=== PATIENT | female | born 1955 | race Caucasian/White ===

== ENCOUNTER 2018-04-26 10:50 | Emergency (ER) | payer OTHER ==
[~2018-04-26] VITALS: Ht 170.2 cm; Wt 62.6 kg
[~2018-04-26 10:50] MED LIST: CIPRO500 MG PO; CLARITIN10 MG PO; FLAGYL500 MG PO; HYDROCODONE-APA1 TA1 PO; OMEPRAZOLE 20 M20 M1 PO
[2018-04-26] MEDS ORDERED: CHILDREN'S ASPI81 M1 PO (11:06)
[2018-04-26] MEDS ORDERED: PREVACID15 MG PO (11:07)
[2018-04-26 11:21] LABS: URINE BLOOD NEGATIVE (Negative); URINE CLARITY CLEAR; URINE COLOR YELLOW; URINE GLUCOSE-RANDOM NEGATIVE (Negative); URINE KETONES NEGATIVE (Negative); URINE LEUKOCYTES-REFLEX 1+ (Negative); URINE NITRITE-REFLEX NEGATIVE (Negative); URINE PROTEIN TRACE (Negative); URINE SPECIFIC GRAVITY 1.015 (1.005-1.030)
[2018-04-26 11:25] LABS: ICTOTEST (BILI CONFIRMATORY) Negative (Negative); URINE BILIRUBIN 1+ (Negative)
[2018-04-26 11:28] LABS: ABSOLUTE BASOPHILS 0.1 thou/uL (0.0-0.2); ABSOLUTE EOSINOPHILS 0.2 thou/uL (0.0-0.7); ABSOLUTE LYMPHOCYTES 1.6 thou/uL (0.8-5.3); ABSOLUTE MONOCYTES 0.9 thou/uL (0.0-1.2); ABSOLUTE NEUTROPHILS 9.2 thou/uL (1.6-8.1); BASOPHILS 1.2 %; EOSINOPHILS 1.8 %; HEMATOCRIT 31.7 % (37.0-47.0); HEMOGLOBIN 9.7 gm/dL (12.0-15.0); LYMPHOCYTES 13.2 %; MCH 22.5 pg (26.0-34.0); MCHC 30.7 g/dL (28.0-37.0); MCV 73.2 fL (80.0-100.0); MONOCYTES 7.3 %; MPV 8.3 fl. (7.2-11.1); NUCLEATED RBCS 0 /100WBC; PLATELET COUNT* 439 thou/uL (150-400); POLYS 76.5 %; RBC 4.33 mil/uL (4.20-5.00); RDW-CV 15.1 % (10.5-14.5); WBC 12.1 thou/uL (4.0-11.0)
[2018-04-26 11:34] LABS: SQUAMOUS >10 Many /LPF (0-3)
[2018-04-26 11:35] LABS: BACTERIA-REFLEX 1-9 Few /HPF (None Seen); CASTS None Seen /LPF (None Seen); CRYSTALS None Seen /LPF (None Seen); MUCUS None Seen strn/LPF (None Seen); URINE RBC 3-10 Few /HPF (0-2); URINE WBC-REFLEX 6-15 Few /HPF (0-5)
[2018-04-26 11:37] LABS: CALCIUM 7.8 mg/dL (8.5-10.1); CREATININE 0.6 mg/dL (0.6-1.3); POTASSIUM 3.3 mmol/L (3.5-5.1)
[2018-04-26 11:41] LABS: ALBUMIN 2.4 g/dL (3.4-5.0); TOTAL BILIRUBIN 0.6 mg/dL (<0.1-1.0); TOTAL PROTEIN 6.9 g/dL (6.4-8.2)
[2018-04-26] MEDS ORDERED: FLAGYL500 MG PO (14:50)
[2018-04-26] MEDS ORDERED: CIPROFLOXACIN500 M1 PO (14:50)
[2018-04-26 15:05] VITALS: BP 102/62
== END 2018-04-26 15:07 | disposition home or self-care (01) ==
LOC: M.ERS 10:50
PROVIDERS: Emergency Medicine
DX: K52.9 Noninfective gastroenteritis and colitis, unspecified (principal); K21.9 Gastro-esophageal reflux disease without esophagitis; F17.210 Nicotine dependence, cigarettes, uncomplicated; Z87.01 Personal history of pneumonia (recurrent); Z90.49 Acquired absence of other specified parts of digestive tract

== ENCOUNTER 2018-05-20 18:15 | Inpatient (IN) | payer OTHER ==
[~2018-05-20] VITALS: Ht 170.2 cm; Wt 63.0 kg
[~2018-05-20 18:15] MED LIST changes: +CHILDREN'S ASPI81 M1 PO; +CIPROFLOXACIN500 M1 PO; +PREVACID15 MG PO
[2018-05-20 18:23] VITALS: BP 93/57
[2018-05-20 18:42] LABS: URINE BLOOD NEGATIVE (Negative); URINE CLARITY CLEAR; URINE COLOR YELLOW; URINE GLUCOSE-RANDOM NEGATIVE (Negative); URINE KETONES NEGATIVE (Negative); URINE LEUKOCYTES-REFLEX TRACE (Negative); URINE NITRITE-REFLEX NEGATIVE (Negative); URINE PROTEIN 1+ (Negative); URINE SPECIFIC GRAVITY 1.025 (1.005-1.030)
[2018-05-20 18:44] LABS: URINE BILIRUBIN 1+ (Negative)
[2018-05-20 18:45] LABS: ICTOTEST (BILI CONFIRMATORY) Negative (Negative)
[2018-05-20 18:49] LABS: HEMOGLOBIN 10.1 gm/dL (12.0-15.0); MCH 23.1 pg (26.0-34.0); MCHC 31.4 g/dL (28.0-37.0); MCV 73.4 fL (80.0-100.0); MPV 9.4 fl. (7.2-11.1); NUCLEATED RBCS 0 /100WBC; PLATELET COUNT* 351 thou/uL (150-400); RBC 4.36 mil/uL (4.20-5.00); RDW-CV 18.7 % (10.5-14.5); WBC 26.4 thou/uL (4.0-11.0)
[2018-05-20 18:50] LABS: SQUAMOUS >10 Many /LPF (0-3)
[2018-05-20 18:51] LABS: BACTERIA-REFLEX 1-9 Few /HPF (None Seen); CASTS None Seen /LPF (None Seen); CRYSTALS None Seen /LPF (None Seen); URINE RBC 0-2 Rare /HPF (0-2); URINE WBC-REFLEX 6-15 Few /HPF (0-5)
[2018-05-20 18:58] LABS: ANION GAP 13 mmol/L (7-16); BUN 51 mg/dL (7-18); CHLORIDE 93 mmol/L (98-107); CO2 24 mmol/L (21-32); CREATININE 2.8 mg/dL (0.6-1.3); GLUCOSE 91 mg/dL (70-99); SODIUM 130 mmol/L (136-145)
[2018-05-20 19:00] LABS: APTT 30.7 Seconds (25.0-31.3); INR 1.6; PROTIME 16.7 Seconds (9.20-11.50)
[2018-05-20 19:09] LABS: ALBUMIN 2.1 g/dL (3.4-5.0); ALKALINE PHOSPHATASE 170 U/L (46-116); LIPASE 168 U/L (73-393); SGOT 18 U/L (15-37); SGPT 10 U/L (30-65); TOTAL BILIRUBIN 0.9 mg/dL (<0.1-1.0); TOTAL PROTEIN 6.7 g/dL (6.4-8.2); TROPONIN-I LEVEL <0.06 ng/mL (<0.06)
[2018-05-20 19:18] LABS: POTASSIUM 2.4 mmol/L (3.5-5.1)
--- NOTE | 2018-05-20 19:30 | NUR ---
ORTHOS DONE DUE TO LOW PRESSURES. ELCTROLYTES CAME BACK WITH POTTASSIUM LOW. ADMIT ORDER CHANGED FROM MED SURGE TO TELEMETRY
--- NOTE | 2018-05-20 19:52 | NUR ---
CT CHANGED TO WITHOUT CONTRAST PT HAS HIGH BUN AND CREATININE
--- NOTE | 2018-05-20 19:52 | NUR ---
PHARMACY CALLED TO FIX THE POTASSIUM ORDER AT THIS TIME. THEY WILL FIX IT SHORTLY
[2018-05-20 20:09] LABS: ABSOLUTE EOSINOPHILS 0.3 thou/uL (0.0-0.7); ABSOLUTE MONOCYTES 0.3 thou/uL (0.0-1.2); ABSOLUTE NEUTROPHILS 21.9 thou/uL (1.6-8.1)
[2018-05-20 20:10] LABS: ANISOCYTOSIS 1+; MICROCYTES 1+; PLATELET ESTIMATE ADEQUATE
[2018-05-20 20:11] LABS: TOXIC GRANULATION 2+
[2018-05-20 20:30] VITALS: BP 96/57
[2018-05-20 21:00] VITALS: BP 85/54
[2018-05-21] VITALS (16 sets, daily range): BP systolic 84–102; BP diastolic 46–543
[2018-05-21 05:01] LABS: HEMOGLOBIN 8.4 gm/dL (12.0-15.0); MCH 23.2 pg (26.0-34.0); MCHC 31.1 g/dL (28.0-37.0); MCV 74.7 fL (80.0-100.0); MPV 9.2 fl. (7.2-11.1); NUCLEATED RBCS 0 /100WBC; PLATELET COUNT* 306 thou/uL (150-400); RBC 3.61 mil/uL (4.20-5.00); RDW-CV 18.2 % (10.5-14.5); WBC 15.8 thou/uL (4.0-11.0)
[2018-05-21 05:12] LABS: CALCIUM 7.2 mg/dL (8.5-10.1); CREATININE 2.2 mg/dL (0.6-1.3); PHOSPHORUS* 2.7 mg/dL (2.5-4.9)
--- NOTE | 2018-05-21 05:13 | NUR ---
Admitted patient from ER at 2039. Patient c/o abdominal pain that has been going on since February. Surgery resident at the bedside explaining treatment options to patient. BP has been trending 80s/40s, 90s/50s. SR noted on telemetry. Patient is A&O x4; SBA to bathroom. Patient c/o intermittent abdominal pain but refused PRN pain medication. Patient has been NPO since midnight in preparation for any procedures this morning. Call light within patient's reach at all times. Will continue to monitor.
[2018-05-21 05:45] LABS: POTASSIUM 2.6 mmol/L (3.5-5.1)
[2018-05-21 05:46] LABS: MAGNESIUM 0.6 mg/dL (1.8-2.4)
[2018-05-21 05:58] LABS: ABSOLUTE LYMPHOCYTES 1.4 thou/uL (0.8-5.3); ABSOLUTE MONOCYTES 0.6 thou/uL (0.0-1.2); ABSOLUTE NEUTROPHILS 13.7 thou/uL (1.6-8.1); ANISOCYTOSIS 1+; PLATELET ESTIMATE ADEQUATE; POIKILOCYTOSIS 1+
--- NOTE | 2018-05-21 11:55 | EKG ---
[place] [address] ELECTROCARDIOGRAM REPORT Name: EMILY DAVENPORT Room: [place] [address] ADM IN M.R.#: [id number] Admission: 05/20/18 Attend Phys: Brittany Richards MD Discharge: Date of : 53 Report #: [id number] THIS REPORT FOR: //name// [facility] ED Test Date: 2018-05-20 Test Time: 18:29:25 Pat Name: EMILY DAVENPORT Department: Room: [facility] Gender: F Financial Aid Advisor: Kleber CRISTOBAL : 1955 Requested By: Vinny Mazariegos Order Number: [id number] MD: Isaiah Staton Measurements Intervals [place] Rate: 86 P: 17 MO: 110 QRS: 64 QRSD: 96 T: 43 QT: 396 QTc: 474 Interpretive Statements Sinus rhythm Borderline short MO interval Minimal ST depression, anterolateral leads Compared to ECG 07/19/2014 18:30:18 ST (T wave) deviation now present Electronically Signed On 05-21-2018 11:55:34 CDT by Isaiah Staton [email or web address] <ELECTRONICALLY SIGNED> By: Isaiah Staton MD, FACC 05/21/18 1155 1829 1829 Isaiah Staton MD, FAC /EPI
[2018-05-21 13:03] LABS: CALCIUM 7.9 mg/dL (8.5-10.1); CREATININE 1.8 mg/dL (0.6-1.3); POTASSIUM 3.8 mmol/L (3.5-5.1)
[2018-05-21 13:12] LABS: ALBUMIN 1.7 g/dL (3.4-5.0); MAGNESIUM 3.2 mg/dL (1.8-2.4); TOTAL BILIRUBIN 0.6 mg/dL (<0.1-1.0); TOTAL PROTEIN 5.1 g/dL (6.4-8.2)
--- NOTE | 2018-05-21 14:10 | NUR ---
MET WITH PT AND SPOUSE TO DISCUSS HOME SITUATION/DC PLANNING. PT LIVES [facility] SP[facility]SE, SON AND GRANDSON. SHE IS INDEPENDENT AND ACTIVE. DOES NOT HAVE PCP, JUST BEEN FOLLOWING WITH GI DR. DID SUGGEST SHE FIND A NEW DR AND SHE WILL CONSIDER. WAS NOT SATISFIED WITH LAST PCP. PT PLANS TO RETURN HOME AT [place]. WILL FOLLOW
--- NOTE | 2018-05-21 18:44 | NUR ---
VSS, ASSUMED CARE IN THE AM, ASSESSMENT PERFORMED AND CHARTED, FALL PRECAUTION IN PLACE AND CALL LIGHT IN REACH, PT IS A&O4 AND UP WITH STAND BY, PT STATES SHARP PAIN IN RLQ BELLY, SHE IS ON RA AND IS TRACING SR ON THE MONITOR, PT GOAL IS TO IMPROVE LABES AND HAVE IR PLACE TUBE, AT THIS TIME BELLY DRIAN HAS BEEN PLACED AND HOURLY ROUNDS COMPLETED PT IS STILL TRACING SR ON THE MONITOR AND WILL FOLLOW WITH PLAN OF CARE.
[2018-05-22] VITALS (7 sets, daily range): BP systolic 107–136; BP diastolic 57–80
--- NOTE | 2018-05-22 04:24 | NUR ---
Assumed care of patient at 1930. Full assessment performed and documented; hourly rounding completed for patient safety. Patient is A&O and SBA to bathroom. RLQ abdominal drain intact and patent. SR noted on telemetry. All VSS. Pain controlled well with PRN medication. IVF infusing. Patient slept well throughout the night. Call light within patient's reach. Will continue to monitor.
[2018-05-22 05:28] LABS: ABSOLUTE EOSINOPHILS 0.3 thou/uL (0.0-0.7); ABSOLUTE LYMPHOCYTES 1.5 thou/uL (0.8-5.3); ABSOLUTE MONOCYTES 1.2 thou/uL (0.0-1.2); ABSOLUTE NEUTROPHILS 8.9 thou/uL (1.6-8.1); BASOPHILS 0.3 %; EOSINOPHILS 2.7 %; HEMATOCRIT 26.4 % (37.0-47.0); HEMOGLOBIN 8.3 gm/dL (12.0-15.0); LYMPHOCYTES 12.6 %; MCH 23.4 pg (26.0-34.0); MCHC 31.3 g/dL (28.0-37.0); MCV 74.7 fL (80.0-100.0); MONOCYTES 9.8 %; MPV 8.5 fl. (7.2-11.1); NUCLEATED RBCS 0 /100WBC; PLATELET COUNT* 328 thou/uL (150-400); POLYS 74.6 %; RBC 3.53 mil/uL (4.20-5.00); RDW-CV 18.9 % (10.5-14.5); WBC 11.9 thou/uL (4.0-11.0)
[2018-05-22 05:54] LABS: ALBUMIN 1.4 g/dL (3.4-5.0); CALCIUM 7.8 mg/dL (8.5-10.1); CREATININE 1.2 mg/dL (0.6-1.3); PHOSPHORUS* 3.4 mg/dL (2.5-4.9); POTASSIUM 3.8 mmol/L (3.5-5.1); TOTAL BILIRUBIN 0.5 mg/dL (<0.1-1.0)
[2018-05-22] MEDS ORDERED: CLARITIN10 MG PO (15:25)
[2018-05-22] MEDS ORDERED: OMEPRAZOLE40 MG PO (15:25)
--- NOTE | 2018-05-22 18:02 | NUR ---
VSS, ASSUMED CARE IN THE AM, ASSESSMENT PERFOREMD AND CHARTED, FALL PRECAUTIONS IN PLACE AND CALL LIGHT IN REACH, PT IS ON RA, TRACING SR ON THE MONITOR, UP WITH STAND BY, IS A&O4 AND STATES PAIN IN HER BELLY RATES 2-3 OUT OF 10, HER GOAL IS TO WALK THE UNIT AND SIT UP IN CHAIR, PT CEFERINO MORRISONORAYSHAWN IN RLQ IS IN PLACE AND DRAINING, TOTAL OUT IS 40 ML, HOURLY ROUNDS COMPLETED, PT WALKED UNIT AND NO OTHER STATUS CHANGE NOTED.
[2018-05-23 04:17] LABS: ABSOLUTE BASOPHILS 0.1 thou/uL (0.0-0.2); ABSOLUTE EOSINOPHILS 0.3 thou/uL (0.0-0.7); ABSOLUTE LYMPHOCYTES 1.7 thou/uL (0.8-5.3); ABSOLUTE MONOCYTES 0.9 thou/uL (0.0-1.2); BASOPHILS 0.5 %; EOSINOPHILS 2.4 %; HEMATOCRIT 24.8 % (37.0-47.0); HEMOGLOBIN 7.8 gm/dL (12.0-15.0); LYMPHOCYTES 15.6 %; MCH 23.5 pg (26.0-34.0); MCHC 31.7 g/dL (28.0-37.0); MCV 74.2 fL (80.0-100.0); MONOCYTES 8.5 %; MPV 8.1 fl. (7.2-11.1); NUCLEATED RBCS 0 /100WBC; PLATELET COUNT* 396 thou/uL (150-400); RBC 3.34 mil/uL (4.20-5.00); RDW-CV 18.8 % (10.5-14.5)
[2018-05-23 04:40] LABS: ALBUMIN 1.5 g/dL (3.4-5.0); CALCIUM 8.2 mg/dL (8.5-10.1); CREATININE 0.9 mg/dL (0.6-1.3); POTASSIUM 3.6 mmol/L (3.5-5.1); TOTAL BILIRUBIN 0.5 mg/dL (<0.1-1.0); TOTAL PROTEIN 5.1 g/dL (6.4-8.2)
[2018-05-23 04:44] VITALS: BP 122/68
[2018-05-23 04:53] LABS: PREALBUMIN 8.4 mg/dL (18.0-35.7)
--- NOTE | 2018-05-23 05:13 | NUR ---
END SHIFT: PT RESTED WELL. COMPLAINTS OF PAIN X1 IN ABD, WITH GOOD RESULT FROM PAIN MEDICATION. SR ON MONITOR. PT HAS WALKED TO BATHROOM WITH ASSIST. RLQ ABD DRAIN IS DRAINING BROWN. ABD SOFT AND NON TENDER. PT HAD 2 BM'S OVER SHIFT. PT STATED THEY WERE SOFT WITH SOME MUCOUS. IVF INFUSING WITHOUT DIFFICULTY. VSS. SAFETY PRECAUTIONS IN PLACE. CALL LIGHT IN REACH. PERFORMED HOURLY ROUNDING. WILL CONT TO MONITOR.
[2018-05-23 08:00] VITALS: BP 117/72
--- NOTE | 2018-05-23 10:00 | NUR ---
ASSUMED CARE OF PT AT 0730. PT RESTING ON EDGE OF BED. AT BEDSIDE. PT A&0X4,DENIES ANY PAIN OR SHORTNESS OF BREATH AT THIS TIME. PT GIVEN PAIN MEDICATION BY NOC SHIFT WITH RELIEF. PT TRACING SR ON THE MEALS ON WHEELS DRIVER. ON RA SAT UPPER 90'S. DENIES ANY SHORTNESS OF BREATH. PT UP SBA TO BATHROOM. IVF. DRAIN TO RIGHT LOWER QUADRANT- LIGHT BROWN DRAINAGE NOTED. PT GOAL FOR TODAY IS TO ADVANCE DIET, INCREASE ACTIVITY AND PAIN MGMT. AM ASSESSMENT CHARTED. MEDICATIONS PER MAR. PT REPOSITIONS SELF. HOURLY ROUNDING OBSERVED. BED IN LOW POSITION. CALL LIGHT WITHIN REACH. WILL CONTINUE PLAN OF CARE.
--- NOTE | 2018-05-23 12:06 | NUR ---
CONTINUE TO FOLLOW. MET [facility] PT, STATES TOLERATING CL DIET. ANTICIPATES POSSIBLE SURGERY SOON.
--- NOTE | 2018-05-23 12:47 | CON ---
[address] [address] CONSULTATION Name: EMILY DAVENPORT Room: [place] [address] ADM IN M.R.#: [id number] Admission: 05/20/18 Attend Phys: Brittany Richards MD Discharge: Date of : 53 Report #: [id number] THIS REPORT FOR: //name// CC: [facility] physician/PCP Brittany Richards DATE OF SERVICE: 05/22/2018 Infectious Disease Consultation ATTENDING PHYSICIAN: Dr. Richards. REASON FOR EVALUATION: Cecal perforation complicated by abscess, peritonitis. HISTORY OF PRESENT ILLNESS: Chart reviewed, patient examined. This is a 63-year-old woman with a history of reflux who has had ongoing issues with right lower quadrant pain for several months, most profound within the last couple of months who was ultimately admitted due to worsening signs and symptoms. Imaging suggested abscess believed to be secondary to cecal perforation, underwent percutaneous drainage with significant symptomatic relief. She has had low-grade temperature evaluations, does admit to significant weight loss, poor p.o. intake, loose stools, had been on combination therapy with ciprofloxacin and metronidazole, felt to have a significant adverse drug effects with emesis, associated nausea. She is currently on piperacillin-tazobactam, tolerated it well. Blood and urine cultures have been collected, as well as abscess cultures including bacterial and fungal. ALLERGIES: None known. MEDICATIONS: Fentanyl, enoxaparin, pantoprazole, ondansetron, Zosyn. PAST MEDICAL HISTORY: In addition to the noted above, has IBS, previous appendectomy, seasonal allergies. SOCIAL HISTORY: Smokes cigarettes. No ethanol. FAMILY HISTORY: Noncontributory. REVIEW OF SYSTEMS: As above. PHYSICAL EXAMINATION: GENERAL: She is pleasant, alert, and cooperative. She appears somewhat chronically ill, undernourished, evidence of weight loss, mild distress. VITAL SIGNS: Temperature 97.7, pulse 68, respirations 14, blood pressure is 120/68. SKIN: Warm, dry, [place] [address] CONSULTATION Name: EMILY DAVENPORT Room: [address] IN [facility].#: [id number] Admission: 05/20/18 Attend Phys: Brittany Richards MD Discharge: Date of : 53 Report #: [id number] HEENT: Otherwise unremarkable. NECK: Supple. LUNGS: Clear breath sounds. HEART: Regular. I do not appreciate any murmur. ABDOMEN: Soft, some tenderness. In the right lower quadrant, there is a percutaneous drain in place. GENITOURINARY: Deferred. RECTAL: Deferred. LABORATORY DATA: Blood cultures sterile thus far. Most recent electrolytes: Sodium 138, potassium 3.8, chloride 109, bicarbonate is 20, anion gap of 9, BUN and creatinine 29 and 1.2, albumin of 1.4, total protein 5.0. Estimated GFR of 45. LFTs unremarkable. Prealbumin is 7.3. CBC: White count of 11.9, H and H 8.3 and 26.4, platelets of 328. CA-125 elevated at 188, reference range of 0-38.1. IMAGING DATA: CT abscess drainage was reviewed. CT imaging noted inflammatory change involving the proximal colon including cecum. Findings compatible with contained perforation of the proximal colon, extending to hepatic flexure, pericolonic abscess 4 x 7.5 x 5 cm. ASSESSMENT: Cecal perforation with abscess, peritonitis. We will continue empiric therapy. We would expect certainly fecal related isolates. Pending those results, piperacillin-tazobactam gives us good coverage. She is apparently intolerant of Flagyl as well. Need to pursue whether the diagnosis represents likely of occult process. We will follow. <ELECTRONICALLY SIGNED> By: Fidencio Chavarria MD 05/23/18 1247 1606 0101Josandra Chavarria MD /nt
--- NOTE | 2018-05-23 18:50 | NUR ---
ASSUMED CARE OF PATIENT AT THIS TIME. REPORT RECEIVED FROM MIKAYLA. PATIENT SETTLED TO ROOM. PATIENT DENIES ANY NEEDS AT THIS TIME. CALL LIGHT WITHIN REACH. WILL CONTINUE TO MONITOR.
--- NOTE | 2018-05-23 19:00 | NUR ---
ORDERS RECEIVED TO TRANSFER PT TO ROOM 315. REPORT GIVEN TO KEVEN WOOTEN. PT TRANSFERRED TO ROOM 315 VIA WHEELCHAIR AND NURSING STAFF WITH ALL BELONGINGS AND CHART.
[2018-05-23 20:30] VITALS: BP 117/73
[2018-05-24 04:39] LABS: HEMATOCRIT 26.9 % (37.0-47.0); HEMOGLOBIN 8.4 gm/dL (12.0-15.0); MCH 23.1 pg (26.0-34.0); MCHC 31.3 g/dL (28.0-37.0); MPV 8.1 fl. (7.2-11.1); NUCLEATED RBCS 0 /100WBC; PLATELET COUNT* 412 thou/uL (150-400); RBC 3.64 mil/uL (4.20-5.00); RDW-CV 18.8 % (10.5-14.5); WBC 11.1 thou/uL (4.0-11.0)
[2018-05-24 04:54] LABS: ALBUMIN 1.5 g/dL (3.4-5.0); CALCIUM 8.3 mg/dL (8.5-10.1); CREATININE 0.8 mg/dL (0.6-1.3); POTASSIUM 3.2 mmol/L (3.5-5.1); TOTAL BILIRUBIN 0.5 mg/dL (<0.1-1.0); TOTAL PROTEIN 5.4 g/dL (6.4-8.2)
[2018-05-24 04:55] LABS: PREALBUMIN 9.3 mg/dL (18.0-35.7)
--- NOTE | 2018-05-24 05:18 | NUR ---
PATIENT IS ALERT AND ORIENTED, SLEEPING MOST OF THE SHIFT. VITAL SIGNS STABLE ON ROOM AIR. NO COMPLAINTS OF ANY KIND TONIGHT, DRAIN IN RIGHT LOWER QUADRANT DRAINING WELL. CALL LIGHT IS IN REACH, WILL CONTINUE TO MONITOR.
[2018-05-24 05:23] LABS: CALCIUM 8.3 mg/dL (8.5-10.1); CREATININE 0.8 mg/dL (0.6-1.3); PHOSPHORUS* 4.1 mg/dL (2.5-4.9); POTASSIUM 3.2 mmol/L (3.5-5.1)
[2018-05-24 05:24] LABS: MAGNESIUM 1.2 mg/dL (1.8-2.4)
[2018-05-24 06:52] LABS: ABSOLUTE EOSINOPHILS 0.4 thou/uL (0.0-0.7); ABSOLUTE LYMPHOCYTES 2.1 thou/uL (0.8-5.3); ABSOLUTE MONOCYTES 0.4 thou/uL (0.0-1.2); ABSOLUTE NEUTROPHILS 8.1 thou/uL (1.6-8.1); ANISOCYTOSIS 2+; ATYPICAL LYMPHS 3 %; HYPOCHROMASIA 1+; METAMYELOCYTES 1 %; PLATELET ESTIMATE ADEQUATE
[2018-05-24 08:00] VITALS: BP 155/100
[2018-05-24 10:10] LABS: CA 125 141.7 U/mL (0.0-38.1)
--- NOTE | 2018-05-24 12:51 | CON ---
[address] [address] CONSULTATION Name: EMILY DAVENPORT Room: [address] IN .R.#: [id number] Admission: 05/20/18 Attend Phys: Brittany Richrads MD Discharge: Date of : 53 Report #: [id number] THIS REPORT FOR: //name// CC: [facility] physician/PCP Brittany Richards DATE OF SERVICE: 05/23/2018 REASON FOR CONSULTATION: Elevated CEA. SUBJECTIVE: The patient is a 63-year-old female who was diagnosed with a cecal perforation, abscess and peritonitis, who is being treated with IV antibiotics. Initially, the patient was admitted back on 05/20/2018. The patient was started on antibiotics including Zosyn. She had a CT scan of the abdomen on 05/20/2018, which showed marked progression of inflammatory change involving the proximal colon, involving the cecum compatible with perforation. There was pericolonic abscess measuring 4 x 7.5 x 5 cm, extensive area of inflammatory changes. The patient underwent a CT-guided right abdominal abscess drainage. The patient reported that she has been feeling better in the last couple of days. She is having a followup CT scan tomorrow and possible surgery on Sunday. REVIEW OF SYSTEMS: All systems were reviewed, which came back negative. PAST MEDICAL HISTORY: GERD, IBS. PAST SURGICAL HISTORY: Appendectomy in 2013. FAMILY HISTORY: Two brothers with prostate cancer in the mid 60s. Father with bladder cancer in the late 80s. Aunt on the maternal side developed multiple types of malignancies. SOCIAL HISTORY: She is an active smoker. No alcohol use or drug abuse. ALLERGIES: No known allergies. MEDICATIONS: Per admission list. PHYSICAL EXAMINATION: VITAL SIGNS: Today, temperature 36.9, pulse 75, respirations 17, blood pressure is 117/72. GENERAL: The patient was sitting in chair, was not in acute distress. LUNGS: Clear to auscultations bilaterally. HEART: Regular rate and rhythm, S1, S2 [place] [address] CONSULTATION Name: EMILY DAVENPORT Room: [address] IN ..#: [id number] Admission: 05/20/18 Attend Phys: Brittany Richards MD Discharge: Date of : 53 Report #: [id number] ABDOMEN: Soft, nontender, nondistended, bowel sounds positive. EXTREMITIES: No edema, no cyanosis, no clubbing. LABORATORY DATA: Today, WBC is 11.0, hemoglobin 7.8, MCV 74.2, platelets 396. Creatinine 0.9. TIBC low at 113, iron 9, saturation low at 9, ferritin 307, bilirubin 0.9. CEA is 454.8, CA-125 is 188. IMAGING: As mentioned above. ASSESSMENT AND PLAN: 1. A 63-year-old female who was evaluated because of cecal perforation with abscess formation. Currently, she has a mild clinical response. At this point, I agree with repeating a CT scan and the possible need of surgical intervention. In terms of her elevated tumor marker, which is a common cause due to colon cancer; however, it can be elevated in an inflammatory process; despite that fact they are extremely high. Recommendations, I would like to repeat them tomorrow. In the light of clinical improvement, we should expect a decrease in its level. However, definitely the patient will need a followup CT scan and colonoscopy to evaluate any underlying malignancy. 2. Microcytic anemia. Ferritin checked was elevated at 307. I believe this is related to inflammatory anemia. We will continue to monitor the patient at this point. <ELECTRONICALLY SIGNED> By: Demarco Gibson MD 05/24/18 1251 1543 [id number] Gibson MD /nt
--- NOTE | 2018-05-24 17:00 | NUR ---
SHIFT NOTE - SIGNED SURGERY CONSENT FORM. SPOUSE AT BEDSIDE FOR MOST OF THE SHIFT. PT OFF UNIT THIS MORNING FOR CT SCAN. WILL CONTINUE TO MONITOR.
[2018-05-24 17:19] VITALS: BP 136/80
[2018-05-24 20:45] VITALS: BP 127/73
[2018-05-24 23:09] LABS: MAGNESIUM 1.2 mg/dL (1.8-2.4)
[2018-05-24 23:15] LABS: POTASSIUM 4.3 mmol/L (3.5-5.1)
[2018-05-25 04:06] LABS: ABSOLUTE BASOPHILS 0.1 thou/uL (0.0-0.2); ABSOLUTE EOSINOPHILS 0.2 thou/uL (0.0-0.7); ABSOLUTE MONOCYTES 0.8 thou/uL (0.0-1.2); ABSOLUTE NEUTROPHILS 8.5 thou/uL (1.6-8.1); BASOPHILS 0.7 %; HEMATOCRIT 28.6 % (37.0-47.0); HEMOGLOBIN 8.9 gm/dL (12.0-15.0); MCH 23.2 pg (26.0-34.0); MCHC 31.3 g/dL (28.0-37.0); MCV 74.1 fL (80.0-100.0); MONOCYTES 6.9 %; MPV 8.2 fl. (7.2-11.1); NUCLEATED RBCS 0 /100WBC; PLATELET COUNT* 442 thou/uL (150-400); POLYS 73.4 %; RBC 3.85 mil/uL (4.20-5.00); RDW-CV 19.1 % (10.5-14.5); WBC 11.5 thou/uL (4.0-11.0)
[2018-05-25 04:14] LABS: APTT 35.2 Seconds (25.0-31.3); INR 1.8; PROTIME 18.2 Seconds (9.20-11.50)
[2018-05-25 04:29] LABS: CALCIUM 8.2 mg/dL (8.5-10.1); CREATININE 0.7 mg/dL (0.6-1.3); POTASSIUM 3.7 mmol/L (3.5-5.1)
--- NOTE | 2018-05-25 08:01 | NUR ---
PT SLEPT MOST OF SHIFT. ASSESSMENT DOCUMENTED. MEDS GIVEN PER E-OCT. IV PATENT, FLUIDS INFUSING. NO REPORTS OF PAIN OR NAUSEA. DRAIN IN PLACE AND DRAINING DEPENDANTLY. PT REMAINED NPO AFTER MIGNIGHT. AM MEDS GIVEN WITH A SIP OF WATER. WILL CONTINUE WITH PLAN OF CARE.
[2018-05-25 08:25] VITALS: BP 126/79
[2018-05-25 08:32] VITALS: BP 127/73
[2018-05-25 14:45] VITALS: BP 111/67
--- NOTE | 2018-05-25 18:38 | NUR ---
PATIENT RESTING IN BED. FAMILY AT BEDSIDE. PATIENT HAD BOWEL RESECTION SURGERY THIS AM WITHOUT INCIDENT. PATIENT HAS HAD COMPLAINTS OF BACK AND ABDOMINAL PAIN SINCE RETURNING FROM SURGERY WITH ADEQUATE RELIEF WITH FENTANYL. PATIENT IS TOLERATING SMALL AMOUNTS OF CLEAR LIQUIDS. PROVENA DRAIN INTACT AND WORKING. PREETI DRAIN WITH SEROSANGUINOUS FLUID OUTPUT. PATIENT HAS THOMAS CATHETER IN PLACE. PATIENT DENIES ANY NEEDS AT THIS TIME. CALL LIGHT WITHIN REACH. WILL CONTINUE TO MONITOR.
[2018-05-25 20:00] VITALS: BP 129/75
[2018-05-26] VITALS: BP 122/69
[2018-05-26 04:00] VITALS: BP 113/65
--- NOTE | 2018-05-26 04:42 | NUR ---
ASSUMED CARE OF PT AT 1900 PT ALERT AND ORIENTED X 4 VS AND ASSESSMENT AT PTS BASELINE. PT PREVENA ON MIDLINE FUNCTIONING PROPERLY ILEOSOMY LUQ STOMA PINK MINIMAL SEROSANGENOUS OUTPUT. RLQ PREETI PUTTING OUT SEROSANGENOUS DRANAIGE. PT HAD PAIN MEDS TWICE THEN SLEPT THROUGH THE NIGHT. WILL CONTINUE PLAN OF CARE
[2018-05-26 05:12] LABS: ABSOLUTE MONOCYTES 0.4 thou/uL (0.0-1.2); ABSOLUTE NEUTROPHILS 13.2 thou/uL (1.6-8.1); BASOPHILS 0.2 %; HEMATOCRIT 24.7 % (37.0-47.0); HEMOGLOBIN 7.8 gm/dL (12.0-15.0); LYMPHOCYTES 6.8 %; MCH 23.6 pg (26.0-34.0); MCHC 31.4 g/dL (28.0-37.0); NUCLEATED RBCS 0 /100WBC; PLATELET COUNT* 409 thou/uL (150-400); RBC 3.29 mil/uL (4.20-5.00); RDW-CV 18.7 % (10.5-14.5); WBC 14.7 thou/uL (4.0-11.0)
[2018-05-26 05:25] LABS: ALBUMIN 1.4 g/dL (3.4-5.0); CALCIUM 7.7 mg/dL (8.5-10.1); CREATININE 0.7 mg/dL (0.6-1.3); POTASSIUM 4.8 mmol/L (3.5-5.1); TOTAL BILIRUBIN 0.4 mg/dL (<0.1-1.0); TOTAL PROTEIN 4.7 g/dL (6.4-8.2)
[2018-05-26 08:15] VITALS: BP 123/79
--- NOTE | 2018-05-26 16:21 | NUR ---
OSTOMY NURSE- PATIENT NOW 1ST DAY POST-OP FOLLOWING RIGHT EXTENDED HEMICOLECTOMY WITH END ILEOSTOMY ON 05/25/[address] GABRIEL FOR RIGHT COLON MASS WITH PERFORATION & ABSCESS. HAD INITIALLY PLANNED TO PROVIDE BRIEF INTRODUCTORY EDUCATION, BUT PATIENT VERY ALERT & AT BEDSIDE, SO PROVIDED EXTENSIVE OSTOMY EDUCATION AND ANSWERED SEVERAL QUESTIONS, THEY WERE BOTH VERY EAGER TO LEARN. , HAWA, IS RETIRED PHARMACIST, AND KNOWN FROM PRIOR EMPLOYMENT AT [email or web address]. HE IS VERY SUPPORTIVE, AND WILL PROVIDE ASSISTANCE AT HOME. ABDOMEN NON-DISTENDED & SOFT. PREVENA DRESSING INTACT/COMPRESSED TO MIDLINE ABDOMEN. PREETI DRAIN RLQ DRAINING LARGE AMOUNTS OF SEROSANGUINEOUS DRAINAGE - EMPTIED & RECOMPRESSED. OSTOMY POUCH WAS COMPLETELY NON-ADHERENT ALONG MEDIAL ASPECT, AND UNABLE TO "PATCH", SO REMOVED & NEW POUCH APPLIED - PROVIDING OPPORTUNITY TO DEMONSTRATE TO PT & . ILEOSTOMY STOMA PINK, MOIST, MODERATELY EDEMATOUS AND APPROXIMATELY 1 1/4 X 1 1/2 INCHES VERTICAL OVAL. MUCOCUTANEOUS INCISION WELL APPROXIMATED, PERISTOMAL SKIN INTACT. STOMA DRAINING FLATUS AND SCANT LOOSE BROWN STOOL. PATIENT REPORTS TOLERATING FULL LIQUID DIET WELL. INITIAL SUPPLIES & INSTRUCTIONS AT BEDSIDE. ILEOSTOMY TEACHING PACKET PROVIDED. ENROLLED IN [place] STARTS PROGRAM, WITH PATIENT'S PERMISSION. WILL NEED HOME HEALTH ON DISCHARGE.
--- NOTE | 2018-05-26 19:47 | NUR ---
PATIENT SITTING UP IN CHAIR. PATIENT IS UP WITH ASSIST OF ONE WITH WALKER. PATIENT HAS DENIED ANY NEED FOR PAIN MEDICATION TODAY. PATIENT SEEN BY OSTOMY NURSE THIS EVENING AND OSTOMY EDUCATION GIVEN TO PATIENT AND . PATIENT IS TOLERATING FULL LIQUID DIET. SMALL AMOUNT OF OUTPUT FROM ILEOSTOMY. PATIENT HAS PREETI DRAIN TO RLQ WITH SEROSANGUINOUS FLUID. PATIENT DENIES ANY NEEDS AT THIS TIME. CALL LIGHT WITHIN REACH. WILL CONTINUE TO MONITOR.
[2018-05-27] VITALS: BP 110/63
[2018-05-27 03:58] LABS: HEMATOCRIT 25.1 % (37.0-47.0); HEMOGLOBIN 7.8 gm/dL (12.0-15.0); MCH 23.5 pg (26.0-34.0); MCHC 31.1 g/dL (28.0-37.0); MCV 75.7 fL (80.0-100.0); MPV 8.3 fl. (7.2-11.1); RBC 3.32 mil/uL (4.20-5.00); RDW-CV 18.9 % (10.5-14.5); WBC 12.4 thou/uL (4.0-11.0)
[2018-05-27 04:18] LABS: CALCIUM 7.9 mg/dL (8.5-10.1); CREATININE 0.7 mg/dL (0.6-1.3); MAGNESIUM 1.5 mg/dL (1.8-2.4); PHOSPHORUS* 3.6 mg/dL (2.5-4.9); POTASSIUM 4.3 mmol/L (3.5-5.1)
[2018-05-27 09:00] VITALS: BP 130/70
--- NOTE | 2018-05-27 11:22 | CON ---
[address] [address] CONSULTATION Name: EMILY DAVENPORT Room: [address] IN M.R.#: [id number] Admission: 05/20/18 Attend Phys: Brittany Richards MD Discharge: Date of : 53 Report #: [id number] THIS REPORT FOR: //name// CC: [facility] physician/PCP Brittany Richards HISTORY OF PRESENT ILLNESS: This is a pleasant 63-year-old female with history of abdominal pain and diarrhea for the last 3 months. The patient reported intermittent episodes of abdominal pain and diarrhea that got progressively worse over the course of the last 3 months. She now reports about 6-7 bowel movements per day. The patient was initially evaluated in [place] ER about 2 weeks back and placed on a course of antibiotics. At that time, she underwent an outpatient colonoscopy, which demonstrated severe edema and ulcerations in the ascending colon and possible stenosis of the terminal ileum and inability to pass the scope into the TI. Biopsies performed at that time were inconclusive. The patient continued to have worsening symptoms and she was therefore recommended to undergo an MR enterography as outpatient. The MRE demonstrated thickening, fluid collection and possible microperforation on the right side of the colon. The patient was then referred for inpatient admission and further evaluation. The patient continues to report about 6-7 bowel movements per day along with pain in the right lower quadrant of the abdomen. She also reports a subjective sensation of fevers and chills in the last 1 week and reports has lost about 30 pounds in the last 3 months. She denies any hematochezia or hematemesis. PAST MEDICAL HISTORY: Reflux disease. PAST SURGICAL HISTORY: The patient had appendectomy in 2013. SOCIAL HISTORY: The patient smokes daily, but otherwise denies any alcohol or recreational drug use. FAMILY HISTORY: No family history of colorectal cancer. REVIEW OF SYSTEMS: A comprehensive 10-point review of systems is negative except for what is mentioned here. PHYSICAL EXAMINATION: VITAL SIGNS: Temperature is 37.1, pulse rate 84, respiratory rate 16, blood pressure 100/63, and pulse ox 96%. GENERAL: The patient is alert, awake, oriented times 3. HEENT: Pupils are equal, round, reactive to light and accommodation. Mucous membranes are moist. There is no congestion. LUNGS: Clear to auscultation bilaterally. NECK: Supple. There is no supraclavicular lymphadenopathy. CARDIOVASCULAR: Rate and rhythm regular. S1, [place]2 [place] [address] CONSULTATION Name: EMILY DAVENPORT Room: [address]#: [id number] Admission: 05/20/18 Attend Phys: Brittany Richards MD Discharge: Date of : 53 Report #: [id number] ABDOMEN: Soft. There is tenderness in the right lower quadrant along with guarding, no rigidity. Bowel sounds are present. EXTREMITIES: Warm, well perfused. There is no edema. NEUROLOGIC: There is no focal neurological deficit. SKIN: Warm and dry. LABORATORY DATA: Hemoglobin 8.4, hematocrit 27.0, platelet count 306. WBC count 15.8, sodium 131, potassium 3.8, chloride 104, bicarbonate 21, BUN 43, creatinine 1.8, total bilirubin 0.6, AST 28, ALT 10, alkaline phosphatase 139. CA-125 188. IMAGING DATA: CT abdomen and pelvis: Microperforation of the liver proximal colon and cecum compatible with contained perforation of proximal colon and cecum with inflammatory changes hepatic flexure. There is probable pericolonic abscess measuring 4 x 7.5 x 5 cm with extensive erythematous changes in the right abdomen. Limited evaluation due to lack of intravenous contrast. ASSESSMENT AND PLAN: This is a very pleasant 63-year-old female who is presenting with abdominal pain, diarrhea, and weight loss over the last [address] abdomen demonstrated a large abscess in the right side of the colon along with possible microperforation. Along with this, the patient was found to have acute kidney injury. Continue broad-spectrum antibiotic coverage. Appreciate interventional radiology input and drainage. Appreciate surgery consult. There is obvious concern for her underlying malignant process, especially with the elevated CA-125 levels. We will discuss with Surgery the appropriate timing for laparoscopy and possible biopsy of the involved area. <ELECTRONICALLY SIGNED> By: Oscar Tyson MD 05/27/18 1122 [id number] Tyson MD /nt
--- NOTE | 2018-05-27 15:58 | NUR ---
CONTINUE TO FOLLOW, MET WITH PT. STATES DOING WELL POST OP, IS UP WITH WALKER. NOT SURE SHE HAS ONE AT HOME BUT WILL HAVE HER CHECK. MAY NEED ONE AT [place]. DISCUSSED OSTOMY AND PREVENA VAC, PT WILL NEED HH. OPTIONS DISCUSSED WITH AGREEABLE TO USE [facility]. CALLED AND FAXED INITAL REFERAL TO [facility], THEY CAN ACCEPT AT [place]. OSTOMY NURSE SAW PT AND HAS ORDERED INITIAL SUPPLIES. WILL FOLLOW
--- NOTE | 2018-05-27 16:31 | NUR ---
PATIENT SITTING UP IN CHAIR, NO COMPLAINTS OF PAIN. ILEOSTOMY EMPTIED X 2 THIS SHIFT. PREETI DRAIN DRAINING SEROSANGIOUS DRAINAGE ADEQUATLY. IVF TO SL THIS EVENING. SCHED IV ABX INFUSED ORDERED. MIDLINE DRESSING REMAINS D/I. SOFT DIET TO START THIS EVENING. THOMAS DC'D THIS AM, PATIENT VOIDING WITHOUT DIFFICULTY. MG REPLACED THIS AM FOR LEVEL OF 1.5, REDRAW NOW 2.0.
[2018-05-27 23:13] VITALS: BP 133/76
[2018-05-28 04:46] LABS: ABSOLUTE BASOPHILS 0.1 thou/uL (0.0-0.2); ABSOLUTE EOSINOPHILS 0.4 thou/uL (0.0-0.7); ABSOLUTE LYMPHOCYTES 2.3 thou/uL (0.8-5.3); ABSOLUTE MONOCYTES 0.6 thou/uL (0.0-1.2); ABSOLUTE NEUTROPHILS 8.5 thou/uL (1.6-8.1); BASOPHILS 0.8 %; EOSINOPHILS 3.6 %; HEMATOCRIT 25.3 % (37.0-47.0); HEMOGLOBIN 7.9 gm/dL (12.0-15.0); MCH 23.8 pg (26.0-34.0); MCHC 31.2 g/dL (28.0-37.0); MCV 76.3 fL (80.0-100.0); MONOCYTES 5.1 %; MPV 8.2 fl. (7.2-11.1); NUCLEATED RBCS 0 /100WBC; PLATELET COUNT* 454 thou/uL (150-400); POLYS 71.5 %; RBC 3.32 mil/uL (4.20-5.00); RDW-CV 19.1 % (10.5-14.5); WBC 11.9 thou/uL (4.0-11.0)
[2018-05-28 05:11] LABS: ALBUMIN 1.3 g/dL (3.4-5.0); CALCIUM 7.8 mg/dL (8.5-10.1); CREATININE 0.8 mg/dL (0.6-1.3); POTASSIUM 4.4 mmol/L (3.5-5.1); TOTAL BILIRUBIN 0.2 mg/dL (<0.1-1.0); TOTAL PROTEIN 4.8 g/dL (6.4-8.2)
[2018-05-28 05:45] LABS: CREATININE 0.8 mg/dL (0.6-1.3); MAGNESIUM 1.5 mg/dL (1.8-2.4); PHOSPHORUS* 3.1 mg/dL (2.5-4.9); POTASSIUM 4.5 mmol/L (3.5-5.1)
--- NOTE | 2018-05-28 05:59 | NUR ---
ASSESSMENT COMPLETE. PT SLEPT THROUGH THE NIGHT WITHOUT ANY CONCERNS. PT DENIES PAIN. PT IS ON ROOM AIR WITH ADEQAUTE SATS. VITALS STALBE. PREETI DRAIN TO RIGHT SIDE OF ABDOMEN IN PLACE WITH SEROSANGUINOUS OUTPUT. MIDLINE INCISION WITH PROVENA WOUND VAC IN PLACE. ILEOSTOMY WITH ADEQAUTE OUTPUT. DRESSING TO LEFT PORT PLACEMENT DRY AND INTACT. PT IS FALL RISK, BED ALARM ON. PT IS UP ONE ASSIST WITH WALKER TO BATHROOM. SEE ASSESSMENT AND VITALS FOR OTHER DETAILS. CALL LIGHT WITHIN REACH, WILL CONTINUE PLAN OF CARE
[2018-05-28 09:11] VITALS: BP 134/80
[2018-05-28 16:00] VITALS: BP 131/79
--- NOTE | 2018-05-28 17:40 | NUR ---
PATIENT RESTING IN BED. PATIENT HAS BEEN UP TO CHAIR FOR MEALS AND HAS WALKED IN HALLS. PATIENT HAS DENIED ANY PAIN. PATIENT HAS RLQ PREETI DRAIN WITH SEROSANGUINOUS FLUIDS. PATIENT HAS PROVENA WOUND VAC IN PLACE TO MIDLINE INCISION. PATIENT HAS OUTPUT FROM ILEOSTOMY. PATIENT DENIES ANY NEEDS AT THIS TIME. CALL LIGHT WITHIN REACH. WILL CONTINUE TO MONITOR.
[2018-05-28 19:40] VITALS: BP 121/71
[2018-05-29 04:11] LABS: HEMATOCRIT 24.9 % (37.0-47.0); HEMOGLOBIN 7.8 gm/dL (12.0-15.0); MCH 23.7 pg (26.0-34.0); MCHC 31.3 g/dL (28.0-37.0); MCV 75.7 fL (80.0-100.0); MPV 8.2 fl. (7.2-11.1); RBC 3.29 mil/uL (4.20-5.00); RDW-CV 19.6 % (10.5-14.5); WBC 12.3 thou/uL (4.0-11.0)
[2018-05-29 04:36] LABS: CALCIUM 7.9 mg/dL (8.5-10.1); CREATININE 0.8 mg/dL (0.6-1.3); MAGNESIUM 1.4 mg/dL (1.8-2.4); PHOSPHORUS* 3.5 mg/dL (2.5-4.9)
--- NOTE | 2018-05-29 06:19 | NUR ---
ASSESSMENT COMPLETE. PT REPORTS SOME DISCOMFORT TO RIGHT SIDE WITH PREETI DRAIN WITH ACTIVITY. DENIES NEED FOR PAIN MEDICATION. DRESSING TO DRAIN INTACT. PT HAS PROVENA IN PLACE TO MIDLINE INCISION. ILEOSTOMY INTACT WITH OUTPUT NOTED. PT GIVEN IV VANC AND ZOSYN SCHEDULED. PT IS UP ONE ASSIST WITH WALKER TO BATHROOM. PT IS SLEEPING AND HAS NO CONCERNS AT THIS TIME. SEE ASSESSMENT AND VITALS FOR OTHER DETAILS. CALL LIGHT WITHIN REACH, WILL CONTINUE PLAN OF CARE.
[2018-05-29 08:15] VITALS: BP 143/68
[2018-05-29 16:36] VITALS: BP 105/71
--- NOTE | 2018-05-29 19:00 | NUR ---
PATIENT RESTING UP IN CHAIR. PATIENT HAS WALKED IN HALLS TODAY. ILEOSTOMY EDUCATION GIVEN AND PATIENT EMPTIED OWN BAG. PATIENT HAD PREETI DRAIN REMOVED BY SURGERY RESIDENT THIS AFTERNOON. PATIENT DENIES ANY PAIN. PATIENT HAS GOOD APPETITE. PATIENT DENIES ANY NEEDS AT THIS TIME. CALL LIGHT WITHIN REACH. WILL CONTINUE TO MONITOR.
[2018-05-30] VITALS: BP 120/65
--- NOTE | 2018-05-30 04:42 | NUR ---
PATIENT SLEPT WELL DURING THIS SHIFT. PT DENIES PAIN/NAUSEA. PT WITH ANTIBIOTICS INFUSING PER DR ORDER. IV IN LT FOREARM LEAKING AND WAS REMOVED. NEW IV STARTED IN LT FOREARM. PT WITH MIDLINE INCISION WITH WOUND VAC IN PLACE; NO AIR LEAKS. PT HAS TWO PIECE ILEOSTOMY THAT SHE IS NOW DOING SELF CARE ON. PT IS ON ROOM AIR. PT HAD SCD'S ON PART OF THE NIGHT BUT THEY HAVE BEEN REMOVED PER PT REQUEST. PT DENIES NEEDS AT THIS TIME. FREQUENTLY USED ITEMS AND CALL LIGHT WITHIN REACH. SIDERAILS UPX2. WILL CONTINUE TO MONITOR.
[2018-05-30 07:40] VITALS: BP 128/68
[2018-05-30 16:08] VITALS: BP 127/76
--- NOTE | 2018-05-30 17:24 | NUR ---
OSTOMY NURSE-PATIENT RESTING QUIETLY IN BED, STATES THAT SHE DID NOT SLEEP MUCH LAST NIGHT DUE TO DIFFICULTIES WITH IV. SPOKE TO NURSE, [place], EARLIER - PATIENT SOMEWHAT ANXIOUS REGARDING ILEOSTOMY CARE, SHE DOES NOT RECALL MUCH OF TEACHING PROVIDED ON 05/26. PATIENT HAS BEEN EMPTYING POUCH, AND FEELS COMFORTABLE. REVIEWED POUCH CHANGE WITH PATIENT AGAIN, AND SHE FEELS MORE COMFORTABLE NOW. WILL BE AVAILABLE TO ASSIST AT HOME, AND WILL HAVE HOME HEALTH. SHE ALSO HAS PDXL-SK-CORN WRITTEN INSTRUCTIONS. VAC PREVENA REMAINS INTACT TO MIDLINE INCISION. PREETI DRAIN RLQ HAS BEEN REMOVED. COLOSTOMY POUCH OFFSET TO AVOID PREVENA. ILEOSTOMY STOMA REMAINS PINK, MOIST AND ONLY SLIGHT EDEMA. MUCOCUTANEOUS INCISION WELL APPROXIMATED. PERISTOMAL SKIN INTACT. DRAINING MODERATE AMOUNTS OF LOOSE BROWN STOOL. PATIENT REPORTS THAT Zachary Prell SECURE STARTS PACKET HAS BEEN DELIVERED AT HOME, AND REP HAS CALLED HER. SHE HAS INITIAL SUPPLIES AND TEACHING PACKET.
--- NOTE | 2018-05-30 17:40 | NUR ---
PATIENT IS ALERT AND ORIENTED TODAY. VITAL SIGNS STABLE ON ROOM AIR. EDUCATION DONE ON COLOSTOMY, PATIENT IS ANXIOUS ABOUT DIAGNOSIS. PROVIDER WAITING ON PATHOLOGY REPORTS. NO COMPLAINTS OF PAIN TODAY. DRESSING ON ABDOMEN IS CLEAN, DRY AND INTACT WITH WOUND VAC IN PLACE. CALL LIGHT IS IN REACH, WILL CONTINUE TO MONITOR.
[2018-05-31] VITALS: BP 128/68
--- NOTE | 2018-05-31 06:03 | NUR ---
PATIENT SLEPT WELL DURING THIS SHIFT. PT ABLE TO REPOSITION HERSELF IN BED. PT IS UP AD SABINO TO BATHROOM. PT WITH ILEOSTOMY WITH LIQUID STOOL. PT IS DOING WELL WITH SELF CARE. PT HAS MIDLINE ABDOMINAL WOUND VAC; DSG INTACT WITH NO AIR LEAKS. PT WITH SALINE LOCK IN LT FOREARM; PATENT. PT DENIES PAIN/NAUSEA. FREQUENTLY USED ITEMS AND CALL LIGHT WITHIN REACH. SIDERAILS UPX2. WILL CONTINUE TO MONITOR.
[2018-05-31 07:30] VITALS: BP 100/67
[2018-05-31 13:54] LABS: ABSOLUTE BASOPHILS 0.2 thou/uL (0.0-0.2); ABSOLUTE EOSINOPHILS 0.2 thou/uL (0.0-0.7); ABSOLUTE LYMPHOCYTES 2.1 thou/uL (0.8-5.3); ABSOLUTE MONOCYTES 0.8 thou/uL (0.0-1.2); ABSOLUTE NEUTROPHILS 13.4 thou/uL (1.6-8.1); BASOPHILS 1.1 %; EOSINOPHILS 1.2 %; HEMATOCRIT 31.3 % (37.0-47.0); HEMOGLOBIN 9.6 gm/dL (12.0-15.0); LYMPHOCYTES 12.8 %; MCH 23.1 pg (26.0-34.0); MCHC 30.7 g/dL (28.0-37.0); MCV 75.2 fL (80.0-100.0); MONOCYTES 5.1 %; MPV 8.5 fl. (7.2-11.1); NUCLEATED RBCS 0 /100WBC; POLYS 79.8 %; RBC 4.15 mil/uL (4.20-5.00); RDW-CV 19.6 % (10.5-14.5); WBC 16.8 thou/uL (4.0-11.0)
[2018-05-31 13:56] LABS: PLATELET COUNT* 746 thou/uL (150-400)
[2018-05-31 14:06] LABS: ALBUMIN 1.9 g/dL (3.4-5.0); POTASSIUM 4.2 mmol/L (3.5-5.1); TOTAL BILIRUBIN 0.3 mg/dL (<0.1-1.0); TOTAL PROTEIN 6.3 g/dL (6.4-8.2)
[2018-05-31 15:15] VITALS: BP 97/59
--- NOTE | 2018-05-31 16:19 | NUR ---
WAS NOTIFIED TO GET PRIOR AUTH FOR PT'S ZYVOX SCRIPT. SUBMITTED AND PER [employer] PLAN, MAY TAKE UP TO 72HRS TO AUTH. DID ASK FOR EXPEDITED REVIEW. KERRI LEES UPDATED
--- NOTE | 2018-05-31 17:33 | NUR ---
PATIENT HAS BEEN ALERT AND ORIENTED TODAY VERY PLEASANT. SOME PAIN THAT IN ABDOMEN BUT PATIENT DOES NOT REQUEST PAIN MEDICATIONS. ILLEOSTOMY HAS BEEN PUTTING OUT QUITE OF BIT OF LIQUID STOOL TODAY. BLOOD PRESSURE HAS BEEN LOW AND DROPPED WHEN WORKING WITH THERAPY, BOLUS STARTED AND IS RUNNING NOW. WILL CONTINUE TO MONITOR, CALL LIGHT IS IN REACH.
[2018-05-31 18:08] VITALS: BP 99/55
[2018-05-31 21:00] VITALS: BP 93/59
[2018-06-01] VITALS (8 sets, daily range): BP systolic 99–110; BP diastolic 63–67
[2018-06-01 05:04] LABS: ABSOLUTE BASOPHILS 0.2 thou/uL (0.0-0.2); ABSOLUTE EOSINOPHILS 0.3 thou/uL (0.0-0.7); ABSOLUTE LYMPHOCYTES 2.6 thou/uL (0.8-5.3); ABSOLUTE MONOCYTES 0.8 thou/uL (0.0-1.2); ABSOLUTE NEUTROPHILS 9.6 thou/uL (1.6-8.1); BASOPHILS 1.2 %; EOSINOPHILS 2.2 %; HEMATOCRIT 30.5 % (37.0-47.0); HEMOGLOBIN 9.6 gm/dL (12.0-15.0); LYMPHOCYTES 19.4 %; MCH 23.7 pg (26.0-34.0); MCHC 31.4 g/dL (28.0-37.0); MCV 75.5 fL (80.0-100.0); MONOCYTES 5.9 %; MPV 8.5 fl. (7.2-11.1); NUCLEATED RBCS 0 /100WBC; PLATELET COUNT* 704 thou/uL (150-400); POLYS 71.3 %; RBC 4.04 mil/uL (4.20-5.00); RDW-CV 20.7 % (10.5-14.5); WBC 13.5 thou/uL (4.0-11.0)
--- NOTE | 2018-06-01 05:30 | NUR ---
PATIENT SLEPT MOST OF THE NIGHT. IV REMAINS SALINE LOCKED. WOUND VAC REMAINS TO MIDLINE INCISION. BP HAS IMPROVED OVER NIGHT. PATIENT DENIED THE NEED FOR ANY PAIN MEDICINE. WILL CONTINUE TO MONITOR.
[2018-06-01 05:35] LABS: ALBUMIN 1.9 g/dL (3.4-5.0); CALCIUM 9.2 mg/dL (8.5-10.1); POTASSIUM 4.4 mmol/L (3.5-5.1); TOTAL BILIRUBIN 0.2 mg/dL (<0.1-1.0); TOTAL PROTEIN 6.1 g/dL (6.4-8.2)
[2018-06-01 07:11] LABS: HYPOCHROMASIA 2+; PLATELET ESTIMATE INCREASED
[2018-06-01 07:12] LABS: ANISOCYTOSIS 2+; MICROCYTES 2+; OVALOCYTES 1+
[2018-06-01] MEDS ORDERED: NORCO 5-325 TA1 EACH PO (16:07)
[2018-06-01] MEDS ORDERED: ZYVOX600 MG PO (16:09)
[2018-06-01] MEDS ORDERED: BACTRIM DS TAB1 EAC1 PO (16:11)
[2018-06-01] MEDS ORDERED: DIFLUCAN200 MG PO (16:11)
[2018-06-01] MEDS ORDERED: UNICOMPLEX M TA1 TA1 PO (16:14)
[2018-06-01] MEDS ORDERED: OMEPRAZOLE40 MG PO (16:15)
[2018-06-01] MEDS ORDERED: PROBIOTIC1 EAC1 PO (16:16)
--- NOTE | 2018-06-01 16:16 | NUR ---
ALIVIA received fax from pt insurance approving/authorizing the Zyvox prescription for coverage. ALIVIA informed pt nurse and pt and pt . ALIVIA discussed dc planning for today and pt to dc home with and HH services to follow through [facility]. ALIVIA checked with to ensure pt has RW and pt confirmed that they do in fact have a RW ready and available for pt at home. ALIVIA faxed final orders and med list to [facility] and called and spoke with intake who confirmed that they will begin services tomorrow.
--- NOTE | 2018-06-01 16:50 | NUR ---
PATIENT IS ALERT AND ORIENTED TODAY VERY PLEASANT. UP AD SABINO IN ROOM. PATIENT HAS HAD NO COMPLAINTS OF PAIN TODAY. VITAL SIGNS HAVE BEEN STABLE ON ROOM AIR. WOUND VAC REMOVED TODAY BY PROVIDER, DRESSING HAS REMAINED CLEAN, DRY AND INTACT. PATIENT HAS EMPTIED ILLEOSTOMY BY SELF AND HAS DONE WELL. PATIENT IS BEING DISCHARGED TO HOME, DISCHARGE INSTRUCTIONS AND PRESCRIPTIONS GIVEN, QUESTIONS ANSWERED FOR PATIENT AND SPOUSE. LEFT VIA WHEELCHAIR TO HOME WITH . [facility] CALLED.
--- NOTE | 2018-06-03 09:21 | OP ---
[address] [address] OPERATIVE REPORT Name: EMILY DAVENPORT Room: [address] IN M.R.#: [id number] Admission: 05/20/18 Attend Phys: Brittany Richards MD Discharge: 06/01/18 Date of : 53 Report #: [id number] THIS REPORT FOR: //name// CC: TATYANA physician/PCP Brittany Richards DATE OF SERVICE: 05/25/2018 PREPROCEDURE DIAGNOSIS: Mass or inflammation of the right cecum with perforation and abscess. POSTOPERATIVE DIAGNOSIS: Very large mass of the right colon with obvious perforation and possible infiltration of the anterior abdominal wall. FINDINGS: The entire cecum and ascending colon were involved in a very large inflamed mass. There was an area of abscess and perforation on the right side of the abdomen. There had been a percutaneous drain, which was not in the abscess cavity. There were some signs that the inflammatory process or potentially cancer was invading the anterior abdominal wall. SURGEON: Justine Canada DO COSURGEONS: Earnest Jarvis, PGY-2 and Roddy Palomares, PGY-2. PROCEDURE PERFORMED: Extended right hemicolectomy with end ileostomy. ANESTHESIA: General endotracheal and local. ESTIMATED BLOOD LOSS: 30. DRAINS: 15-Tuvaluan PREEIT drain placed in the right lower quadrant, Prevena VAC, Breaux catheter and an end ileostomy. COMPLICATIONS: None. SPECIMENS: Terminal ileum, cecum, ascending colon and the proximal portion of the transverse colon. CONDITION: Stable. DISPOSITION: PACU to the floor. HISTORY OF PRESENT ILLNESS: The patient is a very pleasant 63-year-old female who has been having right-sided abdominal pain for about the last month. She has had this worked up over the last 2 weeks with radiological studies including a CAT scan and an MRI. She had also undergone [place] [address] OPERATIVE REPORT Name: EMILY DAVENPORT Room: [address]#: [id number] Admission: 05/20/18 Attend Phys: Brittany Richards MD Discharge: 06/01/18 Date of : 53 Report #: [id number] studies had indicated a very large inflammatory mass in the cecum. I believe the initial thought process was that this could be diverticulitis but at this time, this appeared more like a cancerous process. At some point, this area must have perforated and she presented for admission with findings of an elevated white count, low-grade fevers and an obvious perforation of the right lower quadrant. Perforation did appear to be contained. She had additional findings of fairly severe electrolyte dyscrasias and hypoalbuminemia. She was admitted to the hospital. IR drain was placed into the fluid collection. Electrolytes were replaced and she was given nutrition shakes. Overall, her condition did significantly improve with these treatments. We then did repeat a CT scan, which was then much more convincing for a cancer of the right-sided abdomen. As she was now doing much better, she was then consented for surgery. Risks discussed included bleeding, infection, pain, scar formation, injury to kidney or ureter or other intra-abdominal organs, hernia at the incision sites, need for further surgery and risks of general anesthesia. The patient understood these risks and elected to proceed. PROCEDURE NOTE: The patient was brought to the operating room. She was laid supine on the operating room table. SCDs were placed to bilateral lower extremities. The patient was already on Zosyn in the perioperative period. Flagyl was added in the operating room. General endotracheal anesthesia was induced by Anesthesia without difficulty. Breaux catheter was placed utilizing sterile technique. Previously placed IR drain was removed. Abdomen was prepped and draped in standard sterile fashion. Timeout was performed to verify the patient and procedure. 20 mL of 0.5% Marcaine were injected along the midline. A midline incision was made with a 10 blade. Cautery was used for hemostasis. Cautery was then used to dissect down through the subcutaneous tissues. Fascia was nicked using cautery and was elevated between 2 Kochers. Fascia was then incised through the entirety of the incisions inferiorly and superiorly. Peritoneum was then also gently nicked using the cautery, was then also opened superiorly and inferiorly. Retractor was placed within her midline incision and the right side of the abdomen was visualized. There was a very large involved inflammatory area along the entire right side of the abdomen. Omentum was cemented down over what appeared to be the cecum and I had some question of whether there may be involvement of the omentum in the inflammatory process. Using very gentle blunt dissection, I was able to create a plane between the healthy-appearing transverse colon and the omentum. The omentum was then serially transected using LigaSure. I was then able to reflect the healthy-appearing transverse colon superiorly. Small bowel was protected down in the left lower quadrant and covered with a moistened lap. I then began a very tedious process of dissecting the bowel off of the anterior and lateral abdominal wall in this area. There was essentially no plane. There was an inflammatory process, which was incredibly dense. Using very careful dissection with cautery, I was eventually able to free the right-sided colon from the anterior and lateral abdominal wall. At one point, I did come across a small abscess which contained purulent fluid. This fluid was cultured and the [facility] [address] [place] [address] OPERATIVE REPORT Name: EMILY DAVNEPORT Room: [address] [facility] IN M.R.#: [id number] Admission: 05/20/18 Attend Phys: Brittany Richards MD Discharge: 06/01/18 Date of : 53 Report #: [id number] was irrigated until clear. Once I was finally able to mobilize the right side of the colon to the midline, I then turned my attention to the terminal ileum. There was a small portion of the terminal ileum which appeared to be involving the inflammatory process, but it was only several centimeters in length. An area of healthy-appearing bowel was chosen. A window was created in the mesentery. The terminal ileum was then clamped and stapled with a 60 mm blue load KATHLEEN stapler without difficulty. I then turned my attention to the transverse colon. Again, an area of healthy-appearing transverse colon just proximal to the mid portion of the transverse colon was chosen. The omentum was divided and then cleared along the anterior surface of the transverse colon. Kathi clamp was used to create a window in the mesentery and the transverse colon was clamped and stapled using a 60 mm blue load KATHLEEN stapler. The mesentery of the specimen was then taken using the LigaSure. Duodenum was clearly visualized and was protected from our visualization. The ileocolic vessels were identified during our dissection and were clamped and tied using a 3-0 silk suture. Once the specimen was freed from its mesentery, it was then handed off. The abdomen was then copiously irrigated with 2 liters of warm saline. Hemostasis was assured along the entire right side of her abdomen. There was no sign of any bleeding. At no point did I visualize the ureter. The abdomen was then completely explored. The liver was visualized and palpated. No masses were identified. The remainder of the transverse colon, the sigmoid colon was all palpated. No masses were visualized. The small bowel was run from the terminal ileum to the ligament of Treitz with no findings of any injuries or disease. The area of our dissection was again closely inspected and there was no sign of any bleeding. At this point, I decided to move forward with the end ileostomy. The small bowel was quite free. As there was still an ongoing inflammatory process on the entire right side of the abdomen, I decided to place the ileostomy on the left side of the abdomen in the mid left lower quadrant. Skin was pinched using an Allis clamp and a dime size area of skin was removed using cautery. Subcutaneous tissue was also dissected free using cautery. A cruciate incision was made on the fascia. Kathi clamp was used to spread the rectus in the direction of its fibers. Peritoneum was nicked using cautery. Finger was then able to be introduced through our ostomy and the area was fairly dilated until 2 fingers could easily pass. [place] was placed through our ostomy site and the small bowel was easily eviscerated. There was no tension and we made sure that the small bowel was not twisted in any fashion. Small bowel was approximated to the peritoneum using 3 interrupted stitches of 3-0 silk. An additional liter of warm saline was used to irrigate the abdomen. Hemostasis was again assured. The remaining omentum was brought down into the right lower quadrant to cover the area of our dissection site. Of note, as we proceeded, it was obvious that the patient was already developing an adhesive process in the right lower quadrant. A 15-Tuvaluan PREETI drain was brought in through the right lower quadrant, was placed along the entire right side of the abdomen and over the liver. Kochers were then placed on the fascia of our incision. Fascia was then closed in a running fashion with 2 interrupted 0 looped PDS with excellent approximation of the fascia. Additional 10 mL of 0.5% [facility] [address] [place] [address] OPERATIVE REPORT Name: EMILY DAVENPORT Room: [address] IN M.R.#: [id number] Admission: 05/20/18 Attend Phys: Brittany Richards MD Discharge: 06/01/18 Date of : 53 Report #: [id number] Marcaine were injected in the fascia. Wound was closed in a layered fashion using deep and superficial stitches of 0 Vicryl in inverted interrupted fashion. Subcutaneous tissues were irrigated. Skin was then closed using a stapler. A 20 cm Prevena VAC was placed over the incision. Drain was sutured into place using a 2-0 nylon. Drain sponge was placed over the drain. We then turned our attention to our ileostomy. It was then matured in a Kaycee type fashion with no difficulties. This was completed with multiple interrupted stitches of 3-0 Vicryl. Skin was cleansed around the ileostomy and an ostomy appliance was placed without difficulty. At this point, our drapes were then completely removed and the patient was repositioned in preparation for placement of a chemo port. Please see that operative note for further information. <ELECTRONICALLY SIGNED> By: Justien Canada DO 06/03/18 0921 [id number] 1446Ctara Canada DO /nt
--- NOTE | 2018-06-04 11:38 | OP ---
[address] [address] OPERATIVE REPORT Name: EMILY DAVENPORT Room: [address] IN M.R.#: [id number] Admission: 05/20/18 Attend Phys: Brittany Richards MD Discharge: 06/01/18 Date of : 53 Report #: [id number] THIS REPORT FOR: //name// CC: Justine Canada DO [facility] physician/PCP Brittany Richards PREOPERATIVE DIAGNOSES: Right colon perforation with abscess, right colon mass, suspected carcinoma of the colon. POSTOPERATIVE DIAGNOSES: Right colon perforation with abscess, right colon mass, suspected carcinoma of the colon. SURGEON: Justine Canada DO. COSURGEON: Roddy Palomares, PGY2. MOBILITY DEVELOPER: None. OPERATION PERFORMED: Left ultrasound-guided internal jugular chemo port placement with fluoroscopy and surgeon interpretation of images. ANESTHESIA: General and local. ESTIMATED BLOOD LOSS: 5 mL. SPECIMENS REMOVED: None. COMPLICATIONS: None. DISPOSITION: PACU to floor. DESCRIPTION OF PROCEDURE: After consent was obtained, the patient was in the operating room and placed in the supine position, prepped and draped in standard sterile fashion. Time-out performed confirming patient and procedure. The patient was placed in 35 degrees Trendelenburg, introduced a needle, advanced into the left internal jugular vein under ultrasound guidance. Venous blood return was indicated. Ultrasound was used to confirm placement of the needle within the vein. The guidewire was advanced. Fluoroscopy was shot. Tip of the guidewire seen just above the right atrium and the superior vena cava. Attention was turned to the left chest wall where a transverse incision using a 15-blade scalpel was made. Electrocautery was used for hemostasis. Blunt dissection was used to get down to the top of the pectoralis fascia. A small subcutaneous pocket was made large enough for the chemo port. Dilator was then advanced over the wire after a small nathen was made at the level of the skin with an 11 blade scalpel. Dilator was advanced down into the left internal jugular vein without any resistance. Dilator was removed [place] [address] OPERATIVE REPORT Name: EMILY DAVENPORT Room: [address] IN [facility].#: [id number] Admission: 05/20/18 Attend Phys: Brittany Richards MD Discharge: 06/01/18 Date of : 53 Report #: [id number] into the vein. Catheter was inserted down to the level about 18 cm. Fluoroscopy was again shot. Tip of the catheter could be seen in the superior vena cava just above the right atrium, indicating correct placement. End of the catheter was then tunneled underneath the skin over the clavicle into the previously created left chest wall pocket. Fluoroscopy was shot once again. There was no evidence of any kinking of the catheter and appeared to remain in correct position. The catheter was then attached to the chemo port after the port was flushed. Chemo port was sutured on to the pectoralis fascia using PDS sutures. After the catheter was attached to the chemo port, the chemo port was then aspirated and the venous blood was returned again indicating correct placement. The catheter was then flushed with normal saline and then 3 mL of premixed heparin solution. The fluoroscopy was once again shot. No kinking of the catheter was seen. The tip of the catheter was seen in the superior vena cava just above the right atrium. Subcutaneous tissue was closed with 3-0 Vicryl and the skin incision was closed with 4-0 Monocryl. Sterile dressings were applied over top. The patient was awoken then from anesthesia. All counts were correct at the end of the case. The patient was transferred to PACU in stable condition. Postoperative chest x-ray revealed correct placement of the catheter and no complications with chemo port placement. No pneumothorax was seen. <ELECTRONICALLY SIGNED> By: Roddy Palomares DO 06/04/18 1138 1359 [id number] Palomares DO /nt
--- NOTE | 2018-06-08 10:06 | PATH ---
[address] [address] PATHOLOGY RPT PROCEDURE Name: CHRISEMILY BENITEZ E Room: [address] IN M.R.#: [id number] Admission: 05/20/18 Date of : 53 Discharge: 06/01/18 Report #: [id number] Path Case #: [id number] [facility] Accession Number: [id number] . 01 Material submitted: . RIGHT COLON, TERMINAL ILEUM, MID TRANSVERSE . 01 Clinical history: . Colon mass . 02 Diagnosis: Right colon, terminal ileum, mid transverse, extended right hemicolectomy with end ileostomy: - Adenocarcinoma, poorly differentiated, with mucinous features. - Extensive fibrosis and serosal adhesions, as well as gross features, compatible with rupture. - Radial margin involved by tumor. - Proximal and distal margins negative for malignancy. - Thirteen lymph nodes negative for carcinoma (0/13). - See comment. . (MAP:[facility]; 05/30/2018) QMS/06/03/2018 . 02 Comment: Immunohistochemical stains are performed as follows on block A5: . AE1/AE3 - Positive CK7 - Positive CDX2 - Positive CK20 - Negative . These findings support the above diagnosis. . Surgical Pathology Cancer Case Summary (Checklist) . . COLON AND RECTUM: Resection, Including Transanal Disk Excision of Rectal Neoplasms . . Procedure ___ Extended right hemicolectomy . Tumor Site ___ Cecum . [place] [address] PATHOLOGY RPT PROCEDURE Name: EMILY ESCUDERO Room: [address]#: [id number] Admission: 05/20/18 Date of : 53 Discharge: 06/01/18 Report #: [id number] Path Case #: [id number] ___ Greatest dimension: 12 cm . Macroscopic Tumor Perforation ___ Present (clinical and gross findings highly suggestive of perforation) . Histologic Type ___ Adenocarcinoma . Histologic Grade ___ Grade 3 (poorly differentiated) . Microscopic Tumor Extension ___ Tumor invades through the muscularis propria into pericolorectal tissue . Margins: Proximal Margin ___ Uninvolved . Distal Margin ___ Uninvolved . Radial Margin ___ Involved by invasive carcinoma . Treatment Effect ___ No known presurgical therapy . Lymph-Vascular Invasion ___ Present . Perineural Invasion ___ Not identified . Tumor Deposits ___ Cannot be determined . Regional Lymph Nodes: Specify: Number examined: 13 Number involved: 0 . Primary Tumor ___ pT4a . Regional Lymph Nodes ___ pN0 . . An attempt to contact Dr. Brittany Richards was made, a message [place] [address] PATHOLOGY RPT PROCEDURE Name: EMILY ESCUDERO Room: [address]#: [id number] Admission: 05/20/18 Date of : 53 Discharge: 06/01/18 Report #: [id number] Path Case #: [id number] . Co-review: Dr. Kowalski . (MAP:[facility]; 05/30/2018) . . 02 Electronically signed: . Shon Ramos MD, Pathologist NPI- [id number] . 01 Gross description: . The specimen is received in formalin, labeled "Emily Escudero, right colon, terminal ileum, mid transverse", is a right extended hemicolectomy colectomy specimen consisting of 5.0 cm of terminal ileum, 37 cm of cecum, ascending and transverse colon and 15 x 15 x 3.5 cm mesentery. The left wall of the cecum and ascending colon is adherent to the mesentery giving C-shape configuration to the specimen. An appendix is not identified. Both the margins are closed by staple line and are free of tumor. The cecum anterior serosa shows a cai-white purulent, friable exudate measuring 4.5 x 4.0 (possible perforation). The serosa adjacent to the cecum on the anterior aspect is covered by cai-white exudate with the remaining pearson-pink and glistening. The mesentery is indurated and hemorrhagic and partially covered by cai-white exudate. The proximal margin circumference is 6.0 cm and the distal margin circumference is 7.0 cm. . The cecum is enlarged, indurated and is filled with cai-white soft, friable circumferential mass and copious amount of green-yellow mucus. The mass is confined to the cecum and measures 12.0 x 8.7 cm in surface area and up to 3.2 cm in height. The mass involves the ileocecal valve and is 5.8 cm from the proximal (ileum) margin and 35 cm from the distal (mid transverse colon) margin. The mass abuts the anterior, left, right wall of cecum. The mass/necrotic exudate is 2.0 cm from the closest transverse colon mucosa. The mesentery is indurated with several areas covered with cai-white exudate. Multiple lymph nodes are identified ranging from 0.1 cm up to 0.7 cm in greatest dimension. Centerpuncher tissue is submitted as follows: . A1. Proximal resection margin (ileum), en face A2. Distal resection margin (mid transverse colon), en face A3-A5. Radial margin, anterior cecum to mass and purulent exudate (possible perforation) A6-A8. Radial margin, left wall cecum to mass A9-A10. Radial margin, right wall cecum to mass A11. Cecum to mesentery to transverse colon, bisected (Green ink at the intersection) A12-A13.Cecum to mesentery to transverse colon (Green ink at intersection) A14. Ileocecal valve [place] [address] PATHOLOGY RPT PROCEDURE Name: EMILY ESCUDERO Room: [address] IN M.R.#: [id number] Admission: 05/20/18 Date of : 53 Discharge: 06/01/18 Report #: [id number] Path Case #: [id number] A15. Ileocecal valve to ileum (Green ink at intersection A16. Mass to ascending colon A17-A18.Mass A19-A21.Possible appendix A22. Uninvolved ileal and colon mucosa A23. Mesentery margin A24. Mesentery A25-A28.Lymph nodes and pericolic fat for lymph nodes candidate ([facility]; 05/28/2018) SHS/SHS . 02 Pathologist provided ICD-10: C18.0 . 02 CPT . 103726 Specimen Comment: A courtesy copy of this report has been sent to Specimen Comment: [phone], . Specimen Comment: Report sent to / DR RICHARDS Performed at: 01 [facility] [address], [place], [place] [id number] MD Wyatt Villafana MD Phone: [phone] Performed at: [address] [facility] [address] [place], [place] [id number] MD Marlon Lanza MD Phone: [phone]
== END 2018-06-01 16:59 | disposition home health service (06) | DRG 853 ==
LOC: M.ERS 18:15 → M.TBA-ER 18:45 → M.2W 18:45 → M.3W 05-23 19:14
PROVIDERS: Family Medicine; Internal Medicine; Surgery; ADMIT Internal Medicine
PROC: B518YZA Fluoroscopy of Superior Vena Cava using Other Contrast, Guidance (ICD-10-PCS; principal; 2018-05-25)
PROC: B548ZZA Ultrasonography of Superior Vena Cava, Guidance (ICD-10-PCS; principal; 2018-05-25)
PROC: 02HV33Z Insertion of Infusion Device into Superior Vena Cava, Percutaneous Approach (ICD-10-PCS; principal; 2018-05-25)
PROC: 0DTF0ZZ Resection of Right Large Intestine, Open Approach (ICD-10-PCS; principal; 2018-05-25)
PROC: 0D1B0Z4 Bypass Ileum to Cutaneous, Open Approach (ICD-10-PCS; principal; 2018-05-25)
DX: A41.9 Sepsis, unspecified organism (principal); E43 Unspecified severe protein-calorie malnutrition; N17.0 Acute kidney failure with tubular necrosis; K57.20 Diverticulitis of large intestine with perforation and abscess without bleeding; E87.1 Hypo-osmolality and hyponatremia; K52.9 Noninfective gastroenteritis and colitis, unspecified; Z79.899 Other long term (current) drug therapy; E87.6 Hypokalemia; D50.9 Iron deficiency anemia, unspecified; E83.42 Hypomagnesemia; R59.1 Generalized enlarged lymph nodes; K21.9 Gastro-esophageal reflux disease without esophagitis; Z90.49 Acquired absence of other specified parts of digestive tract; Z80.42 Family history of malignant neoplasm of prostate; Z80.52 Family history of malignant neoplasm of bladder; Z68.21 Body mass index [BMI] 21.0-21.9, adult; Z23 Encounter for immunization

== ENCOUNTER 2018-06-14 10:16 | Inpatient (IN) | payer OTHER ==
[~2018-06-14] VITALS: Ht 167.6 cm; Wt 56.2 kg
[~2018-06-14 10:16] MED LIST changes: +BACTRIM DS TAB1 EAC1 PO; +DIFLUCAN200 MG PO; +NORCO 5-325 TA1 EACH PO; +OMEPRAZOLE40 MG PO; +PROBIOTIC1 EAC1 PO; +UNICOMPLEX M TA1 TA1 PO; +ZYVOX600 MG PO
[2018-06-14 10:21] VITALS: BP 120/74
[2018-06-14 10:56] LABS: ABSOLUTE BASOPHILS 0.2 thou/uL (0.0-0.2); ABSOLUTE EOSINOPHILS 0.4 thou/uL (0.0-0.7); ABSOLUTE LYMPHOCYTES 3.1 thou/uL (0.8-5.3); ABSOLUTE MONOCYTES 0.9 thou/uL (0.0-1.2); ABSOLUTE NEUTROPHILS 4.2 thou/uL (1.6-8.1); BASOPHILS 1.8 %; HEMATOCRIT 35.8 % (37.0-47.0); HEMOGLOBIN 11.6 gm/dL (12.0-15.0); LYMPHOCYTES 35.5 %; MCH 24.8 pg (26.0-34.0); MCHC 32.3 g/dL (28.0-37.0); MCV 76.9 fL (80.0-100.0); MONOCYTES 9.9 %; NUCLEATED RBCS 0 /100WBC; PLATELET COUNT* 237 thou/uL (150-400); POLYS 47.8 %; RBC 4.66 mil/uL (4.20-5.00); RDW-CV 23.3 % (10.5-14.5); WBC 8.7 thou/uL (4.0-11.0)
[2018-06-14 11:01] LABS: ANION GAP 12 mmol/L (7-16); BUN 22 mg/dL (7-18); CALCIUM 10.2 mg/dL (8.5-10.1); CHLORIDE 97 mmol/L (98-107); CO2 23 mmol/L (21-32); CREATININE 1.1 mg/dL (0.6-1.3); GLUCOSE 114 mg/dL (70-99); POTASSIUM 4.1 mmol/L (3.5-5.1); SODIUM 132 mmol/L (136-145)
[2018-06-14 11:13] LABS: ALBUMIN 3.7 g/dL (3.4-5.0); ALKALINE PHOSPHATASE 100 U/L (46-116); NT-PRO BRAIN NAT PEPTIDE 200 pg/mL (<300); SGOT 13 U/L (15-37); SGPT 20 U/L (30-65); TOTAL BILIRUBIN 0.2 mg/dL (<0.1-1.0); TOTAL PROTEIN 8.4 g/dL (6.4-8.2); TROPONIN-I LEVEL <0.06 ng/mL (<0.06)
[2018-06-14 11:50] LABS: ANISOCYTOSIS 2+
[2018-06-14 11:51] LABS: HYPOCHROMASIA 2+
[2018-06-14 13:37] VITALS: BP 104/64
[2018-06-14 13:50] VITALS: BP 110/74
--- NOTE | 2018-06-14 15:43 | EKG ---
[place] [address] ELECTROCARDIOGRAM REPORT Name: EMILY DAVENPORT Room: [address] ADM IN .R.#: [id number] Admission: 06/14/18 Attend Phys: Chauncey Cheung MD Discharge: Date of : 53 Report #: [id number] THIS REPORT FOR: //name// [facility] ED Test Date: 2018-06-14 Test Time: 10:28:57 Pat Name: EMILY DAVENPORT Department: Room: [facility] Gender: F Service Team Leader: Lilia PONCE : 1955 Requested By: William Christopher Order Number: [id number] MD: Yasir Feliz Measurements Intervals [place] Rate: 109 P: 32 IA: 112 QRS: 83 QRSD: 85 T: 30 QT: 324 QTc: 437 Interpretive Statements Sinus tachycardia Borderline right axis deviation Compared to ECG 05/20/2018 18:29:25 Sinus rhythm no longer present Electronically Signed On 06-14-2018 15:43:24 CDT by Yasir Feliz [email or web address] <ELECTRONICALLY SIGNED> By: Yasir Feliz MD, [facility] 06/14/18 1543 1028 1028 Yasir Feliz MD, [facility] /EPI
[2018-06-14 16:45] LABS: URINE BILIRUBIN NEGATIVE (Negative); URINE BLOOD NEGATIVE (Negative); URINE CLARITY CLEAR; URINE COLOR YELLOW; URINE GLUCOSE-RANDOM NEGATIVE (Negative); URINE KETONES NEGATIVE (Negative); URINE LEUKOCYTES NEGATIVE (Negative); URINE NITRITE NEGATIVE (Negative); URINE PROTEIN NEGATIVE (Negative); URINE SPECIFIC GRAVITY <= 1.005 (1.005-1.030); URINE UROBILINOGEN 0.2 E.U./dl (0.2-1.0)
[2018-06-14 16:47] VITALS: BP 96/58
[2018-06-14 21:11] VITALS: BP 92/53
[2018-06-15 00:28] VITALS: BP 87/43
[2018-06-15 02:49] VITALS: BP 97/51
[2018-06-15 04:03] LABS: ABSOLUTE BASOPHILS 0.1 thou/uL (0.0-0.2); ABSOLUTE EOSINOPHILS 0.4 thou/uL (0.0-0.7); ABSOLUTE LYMPHOCYTES 2.5 thou/uL (0.8-5.3); ABSOLUTE MONOCYTES 0.7 thou/uL (0.0-1.2); ABSOLUTE NEUTROPHILS 2.9 thou/uL (1.6-8.1); EOSINOPHILS 6.8 %; HEMATOCRIT 26.9 % (37.0-47.0); LYMPHOCYTES 37.1 %; MCH 25.3 pg (26.0-34.0); MCHC 32.4 g/dL (28.0-37.0); MCV 78.1 fL (80.0-100.0); MONOCYTES 10.9 %; MPV 8.1 fl. (7.2-11.1); NUCLEATED RBCS 0 /100WBC; POLYS 44.2 %; RBC 3.45 mil/uL (4.20-5.00); RDW-CV 23.2 % (10.5-14.5); WBC 6.6 thou/uL (4.0-11.0)
[2018-06-15 04:14] LABS: CALCIUM 8.5 mg/dL (8.5-10.1); CREATININE 0.8 mg/dL (0.6-1.3); POTASSIUM 4.5 mmol/L (3.5-5.1)
[2018-06-15 04:15] LABS: HEMOGLOBIN 8.7 gm/dL (12.0-15.0); PLATELET COUNT* 125 thou/uL (150-400)
[2018-06-15 04:57] LABS: ANISOCYTOSIS 1+; MACROCYTES Occasional; POIKILOCYTOSIS 1+
[2018-06-15 04:58] LABS: OVALOCYTES 1+; SCHISTOCYTES Occasional
[2018-06-15 04:59] LABS: HYPOCHROMASIA 1+; POLYCHROMASIA Occasional
--- NOTE | 2018-06-15 06:40 | NUR ---
ASSESSMENT COMPLETE. PT SLEPT MOST OF THE NIGHT. IV FLUIDS AND ABX INFUSING. PT IS ON ROOM AIR WITH [place] SATS. DENIES PAIN. PT DENIES N/V. PT HAS ILEOSTOMY, TAKES CARE OF SELF. PT IS UP STANDBY ASSIST WITH WALKER. PT HAS NO CONCERNS AT THIS TIME. SEE ASSESSMENT AND VITALS FOR OTHER DETAILS. CALL LIGHT WITHIN REACH, WILL CONTINUE PLAN OF CARE
[2018-06-15 08:10] VITALS: BP 97/57
[2018-06-15 11:37] VITALS: BP 97/51
--- NOTE | 2018-06-16 09:31 | CON ---
[address] [address] CONSULTATION Name: EMILY DAVENPORT Room: [address] IN M.R.#: [id number] Admission: 06/14/18 Attend Phys: Chauncey Cheung MD Discharge: 06/15/18 Date of : 53 Report #: [id number] THIS REPORT FOR: //name// [facility] DATE OF SERVICE: 06/15/2018 INFECTIOUS DISEASE CONSULTATION ATTENDING PHYSICIAN: Chauncey Cheung M.D. REASON FOR EVALUATION: Pneumonitis. HISTORY OF PRESENT ILLNESS: Chart reviewed, patient examined. This is a 63-year-old well known to myself who has previously was hospitalized for an extended period time, was admitted with abdominal pain, was found to have an obstructing colonic mass in the cecum, underwent a resection. This was complicated by peritonitis and abscess. She was treated and actually was seen as an outpatient within the last couple of weeks, doing better. She has been on systemic antibiotics, which were due to finish about this time. She developed some increased fluidity of her ostomy output, was found to be hypotensive to certain degree and tachycardic. Evaluation was undertaken. Lactic acid was elevated. Urinalysis was unremarkable. Actually imaging of the abdomen, pelvis, and chest, all had improved from previous. Some concern about a pneumonitis, so she was started empirically on antibiotics. She did note she had some shortness of breath, although there was not significant cough. No fevers or chills. She was started empirically on Zosyn. She was resuscitated with fluids, which seemed to from her standpoint helped the most as she thinks she was dehydrated. ALLERGIES: None known. MEDICATIONS: Pantoprazole, enoxaparin, Zosyn, p.r.n. analgesics, antiemetics, Levaquin, guaifenesin. PAST MEDICAL HISTORY: As described above, recent diagnosis of colon cancer, IBS, history of appendectomy, reflux. SOCIAL AND FAMILY HISTORY: Available in chart. REVIEW OF SYSTEMS: As above. PHYSICAL EXAMINATION: GENERAL: She is alert, cooperative, appropriate, pleasant[place] [address] CONSULTATION Name: EMILY DAVENPORT Room: [address]#: [id number] Admission: 06/14/18 Attend Phys: Chauncey Cheung MD Discharge: 06/15/18 Date of : 53 Report #: [id number] somewhat undernourished. She is not showing evidence of respiratory difficulty at this point. She is on room air. VITAL SIGNS: Temperature 98.2, pulse 96, respirations 14, blood pressure 97/51. SKIN: Warm, dry, no rashes. HEENT: Otherwise unremarkable. NECK: Supple. LUNGS: Actually are generally clear to auscultation. HEART: Regular. I do not appreciate murmur. ABDOMEN: Soft, nontender, nondistended. EXTREMITIES: No cyanosis. GENITOURINARY: Deferred. RECTAL: Deferred. LABORATORY DATA: Blood cultures sterile thus far. Initial electrolytes: Sodium 132, potassium 4.1, chloride 97, bicarbonate is 23, anion gap of 12, BUN and creatinine 22 and 1.1, albumin 3.7, total protein 8.4. Estimated GFR 50. CBC: White count of 8.7, hemoglobin 11.6, hematocrit 35.8, platelets 237. CT chest, significant chest improvement, previous bilateral effusions have resolved, previous bilateral lower lobe atelectasis and possible pneumonitis have resolved, some focal atelectasis and infiltrate in the lateral left base. CT abdomen and pelvis, postoperative changes consistent with a left lower quadrant ileostomy and previous hemicolectomy, no acute intraabdominal or pelvic process is seen, no ascites, free air or abscess. Lactic acid was 2.7, repeat was 1.8. Urinalysis unremarkable. ASSESSMENT: Dehydration, I think on balance, I did not see much evidence of pyogenic infection at this point. She is quite comfortable on room air. I think she is breathing well. We will discontinue the antibiotics. She is still adjusting to the increased fluid requirements in the setting of an ileostomy. was there as well. She was agreeable to stop the antibiotics. I told her to get up and to evaluate her exercise tolerance. <ELECTRONICALLY SIGNED> By: Fidencio Chavarria MD 06/16/18 0931 1122 [id number] Chavarria MD /nt
--- NOTE | 2018-07-02 11:54 | CON ---
[facility] [address] [place] [address] CONSULTATION Name: EMILY DAVENPORT Room: [address] IN M.R.#: [id number] Admission: 06/14/18 Attend Phys: Chauncey Cheung MD Discharge: 06/15/18 Date of : 53 Report #: [id number] THIS REPORT FOR: //name// CC: Chauncey Canada DO [facility] physician/PCP Fidencio Gibson MD DATE OF SERVICE: 06/14/2018 HEMATOLOGY-ONCOLOGY CONSULTATION NOTE PRIMARY ONCOLOGIST: Demarco Gibson M.D. REASON FOR CONSULTATION: History of colon cancer, admitted with dehydration and possible shortness of breath. HISTORY OF PRESENT ILLNESS: The patient is a 63-year-old with recent diagnosis of adenocarcinoma of the colon, status post resection and the plans to proceed with adjuvant chemotherapy. She has an ileostomy which has significant output per the patient. She is unable to keep up with the hydration according to her. She does admit to doing 80 ounces of water each day. She had a home health nurse who did find that she was dehydrated and was sent to the Emergency Room. She also had some difficulty breathing or shortness of breath. In the Emergency Room, she had a CT of the chest, abdomen and pelvis, which did not show any concern for any pulmonary embolism and left lower lobe scarring, which was felt to be a chronic issue. No new concerns for any abscess or occult fluid collections. The patient denies any fevers or chills. She has been in her usual state of health. REVIEW OF SYSTEMS: A 12-point review of system was reviewed, which was essentially negative, except for the above-mentioned. She has not initiated her chemotherapy yet. She had a Port-A-Cath in place. Denies any nausea or vomiting. A 12-point review of system was reviewed, which was essentially negative. PAST MEDICAL HISTORY: As mentioned, the patient initially presented with peritonitis with cecal perforation and abscess. She was treated with antibiotics. There was a pericolonic abscess and underwent CT-guided right abdominal abscess drainage. She then had proceeded with a right hemicolectomy with end ileostomy. 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 30 lymph nodes showed no evidence of disease. Irritable [place] [id number] CONSULTATION Name: EMILY DAVENPORT Room: [address]#: [id number] Admission: 06/14/18 Attend Phys: Chauncey Cheung MD Discharge: 06/15/18 Date of : 53 Report #: [id number] PAST SURGICAL HISTORY: Includes appendectomy, right hemicolectomy and Port-A-Cath placement. FAMILY HISTORY: Two brothers had prostate cancer in their 60s and father had bladder cancer in his late 80s. An aunt on the maternal side has multiple types of malignancies. SOCIAL HISTORY: She is and lives with her , has a son and a grandson that lives at home with her. She is an active smoker. Denies any alcohol or illicit drug use. She is retired. ALLERGIES: No known drug allergies. MEDICATIONS: Current medications in the hospital include pantoprazole, Lovenox, Zosyn, MiraLax, Zofran, hydralazine, Colace, Levaquin, Mucinex, Tylenol and DuoNebs. LABORATORY DATA: WBC 8.7, hemoglobin 11.6, hematocrit 35.8, MCV 76.9 and platelets are 237,000 with absolute neutrophil count of 4.2. D-dimer is 1.34. Sodium 132, potassium 4.1, chloride 97, bicarbonate 23, anion gap 12, BUN 22, creatinine 1.1 and glucose 114. Lactic acid was 2.7, which decreased to 1.8. Calcium is 10.2. AST 13, ALT 20, alkaline phosphatase is 100 and creatinine kinase is 12. Troponins are 0.06 and proBNP was 200. Total protein 8.4. Albumin 3.7. Urine testing did not show any evidence of leukocyte esterase or nitrites. IMAGING STUDIES: The patient had a CT of the chest, abdomen and pelvis with contrast, which revealed no evidence of any pulmonary emboli. Bilateral pleural effusions have resolved. There is a small residual area of focal atelectasis or infiltrate in the left lateral base, which measured 1 x 1.8 cm, which probably is the scarring which they are referring to. CT of the abdomen and pelvis also mentioned this 2-cm pleural-based nodularity in the left costophrenic angle, stable compared to 2014. Emphysematous changes are seen. Non-obstructing 2-mm right renal calculus seen. PHYSICAL EXAMINATION: VITAL SIGNS: Temperature of 36.7, heart rate 92, respiratory rate 18 and blood pressure is 110/74. GENERAL: No acute distress. HEENT: Mucous membranes are dry. Anicteric. Atraumatic. Oropharynx is clear, with no evidence of mucositis. NECK: Supple, with no obvious lymphadenopathy. Trachea in the midline. No thyromegaly. LUNGS: Clear to auscultation and percussion. No rhonchi, rales or crackles. CARDIAC EXAMINATION: S1, S2. No murmur, rub or gallop. [facility] [address] [place] [address] CONSULTATION Name: EMILY DAVENPORT Room: [address] IN M.R.#: [id number] Admission: 06/14/18 Attend Phys: Chauncey Cheung MD Discharge: 06/15/18 Date of : 53 Report #: [id number] ABDOMEN: Soft, nontender and nondistended. Does have an ileostomy in the anterior abdominal wall. EXTREMITIES: No edema, cyanosis or clubbing. ASSESSMENT AND PLAN: The patient is a 63-year-old with recently diagnosed adenocarcinoma of the right colon, status post right hemicolectomy, T4a N0 M0, 13 lymph nodes which were negative. She had an abscess associated with it and was treated with antibiotics. She is currently in the process of initiating adjuvant chemotherapy with FOLFOX, which has not been initiated. She is currently admitted with dehydration and possible worsening shortness of breath. I do feel her dehydration is most likely secondary to her increased output from the ileostomy. I did encourage her the fluid hydration and probably may benefit from arrangements for IV fluid hydration as an outpatient as needed, basically to avoid hospitalization with dehydration. She denies any signs of fevers or chills. However, the dyspnea on exertion could be concerned for possible COPD, especially with her ongoing tobacco use. I did also deputy general counsel her about tobacco cessation, which could help. CT chest did not show any concern for pulmonary emboli. There is nodularity in the left lung base, which is chronic and stable compared to 2014 and unlikely to be a pneumonia or concern for metastatic disease at this point. I would encourage her to follow up with Dr. Gibson on discharge to proceed with adjuvant chemotherapy. Regarding her hypercalcemia, I do not feel this is significant enough and would recheck CBC and CMP tomorrow. I do feel this is secondary to dehydration. If it is persistent hypercalcemia, would consider further workup. <ELECTRONICALLY SIGNED> By: Demarco Gibson MD 07/02/18 1154 [id number] Banda MD /nt
== END 2018-06-15 12:00 | disposition home or self-care (01) | DRG 683 ==
LOC: M.ERS 10:16 → M.3W 12:59 → M.TBA-ER 12:59 → M.3W 14:05
PROVIDERS: Emergency Medicine Emergency Medical Services; Nurse Practitioner Family; ADMIT Internal Medicine
DX: N17.9 Acute kidney failure, unspecified (principal); E44.0 Moderate protein-calorie malnutrition; E87.2 Acidosis; E86.0 Dehydration; R00.0 Tachycardia, unspecified; F17.210 Nicotine dependence, cigarettes, uncomplicated; I95.9 Hypotension, unspecified; E83.52 Hypercalcemia; K21.9 Gastro-esophageal reflux disease without esophagitis; Z90.49 Acquired absence of other specified parts of digestive tract; Z93.2 Ileostomy status; Z80.42 Family history of malignant neoplasm of prostate; Z80.52 Family history of malignant neoplasm of bladder; Z68.20 Body mass index [BMI] 20.0-20.9, adult; Z79.899 Other long term (current) drug therapy

== ENCOUNTER → 2018-09-17 | Outpatient (CLI) | payer OTHER | LOC: M.CT 09:44 | DX: J43.9 Emphysema, unspecified (principal); C18.9 Malignant neoplasm of colon, unspecified; Z90.49 Acquired absence of other specified parts of digestive tract ==

== ENCOUNTER → 2018-12-02 | Outpatient (CLI) | payer OTHER | LOC: M.CT 09:55 | DX: Z08 Encounter for follow-up examination after completed treatment for malignant neoplasm (principal); C18.9 Malignant neoplasm of colon, unspecified; J43.2 Centrilobular emphysema; K57.30 Diverticulosis of large intestine without perforation or abscess without bleeding; I25.10 Atherosclerotic heart disease of native coronary artery without angina pectoris; J98.4 Other disorders of lung ==

== ENCOUNTER → 2019-03-31 | Outpatient (CLI) | payer OTHER ==
[2019-03-31 08:14] LABS: CREATININE 0.8 mg/dL (0.6-1.3)
== END ==
LOC: M.LAB 07:54 → M.CT 09:30
PROVIDERS: Internal Medicine
DX: J43.9 Emphysema, unspecified (principal); R91.1 Solitary pulmonary nodule; K57.90 Diverticulosis of intestine, part unspecified, without perforation or abscess without bleeding; K46.9 Unspecified abdominal hernia without obstruction or gangrene; C18.9 Malignant neoplasm of colon, unspecified

== ENCOUNTER 2019-04-23 05:48 | Inpatient (IN) | payer MEDICARE ==
[~2019-04-23] VITALS: Ht 167.6 cm; Wt 58.9 kg
--- NOTE | ~2019-04-23 | H ---
[address] [address] HISTORY AND PHYSICAL Name: CHRISEMMANUELPADDY Room: [address] IN M.R.#: [id number] Admission: 04/23/19 Attend Phys: Justine Canada DO Discharge: 04/29/19 Date of : 53 Report #: [id number] THIS REPORT FOR: //name// For History and Physical please refer to the handwritten note in the patient's medical record. By: 07Medical Records Staff ESDRAS /CARLOS
--- NOTE | ~2019-04-23 | H ---
[address] [address] HISTORY AND PHYSICAL Name: EMILY DAVENPORT Room: [address] ADM IN M.R.#: [id number] Admission: 04/23/19 Attend Phys: Justine Canada DO Discharge: Date of : 53 Report #: [id number] THIS REPORT FOR: //name// Please refer to the History and Physical performed in the physician's office. By: 0635Medical Records Staff ESDRAS /CARLOS
[~2019-04-23 05:48] MED LIST changes: +CALCIUM 500 +1 EAC5 PO; +LOPERAMIDE 2 MG2 M1 PO; +XARELTO20 MG PO
[2019-04-23 06:34] LABS: HEMATOCRIT 43.7 % (37.0-47.0); HEMOGLOBIN 14.5 gm/dL (12.0-15.0); MCH 30.3 pg (26.0-34.0); MCHC 33.2 g/dL (28.0-37.0); MCV 91.3 fL (80.0-100.0); MPV 8.6 fl. (7.2-11.1); RBC 4.78 mil/uL (4.20-5.00); RDW-CV 13.9 % (10.5-14.5); WBC 7.6 thou/uL (4.0-11.0)
[2019-04-23 06:41] LABS: CALCIUM 9.4 mg/dL (8.5-10.1); CREATININE 1.3 mg/dL (0.6-1.3)
[2019-04-23 06:46] LABS: ALBUMIN 4.4 g/dL (3.4-5.0); TOTAL BILIRUBIN 0.6 mg/dL (<0.1-1.0); TOTAL PROTEIN 7.7 g/dL (6.4-8.2)
[2019-04-23 07:46] VITALS: BP 87/63
[2019-04-23 14:00] VITALS: BP 108/69
[2019-04-23 20:00] VITALS: BP 104/55
[2019-04-24] VITALS (7 sets, daily range): BP systolic 92–113; BP diastolic 60–72
[2019-04-24 05:13] LABS: CALCIUM 8.7 mg/dL (8.5-10.1); CREATININE 0.9 mg/dL (0.6-1.3); HEMATOCRIT 37.6 % (37.0-47.0); MCH 30.2 pg (26.0-34.0); MCHC 32.9 g/dL (28.0-37.0); MCV 91.9 fL (80.0-100.0); MPV 8.9 fl. (7.2-11.1); RBC 4.09 mil/uL (4.20-5.00); RDW-CV 13.7 % (10.5-14.5); WBC 13.3 thou/uL (4.0-11.0)
[2019-04-24 05:16] LABS: HEMOGLOBIN 12.4 gm/dL (12.0-15.0)
--- NOTE | 2019-04-24 17:54 | EKG ---
[place] [address] ELECTROCARDIOGRAM REPORT Name: EMILY DAVENPORT Room: [address] ADM IN M.R.#: [id number] Admission: 04/23/19 Attend Phys: Justine Canada DO Discharge: Date of : 53 Report #: [id number] THIS REPORT FOR: //name// [facility] Test Date: 2019-04-23 Test Time: 07:35:57 Pat Name: EMILY DAVENPORT Department: Room: [facility] Gender: F Scientific Diver: : 1955 Requested By: Justine Canada Order Number: [id number] Reading MD: Luis Manuel Villagran Measurements Intervals [place] Rate: 85 P: 17 SC: 123 QRS: 74 QRSD: 88 T: 53 QT: 385 QTc: 458 Interpretive Statements Sinus rhythm Compared to ECG 06/14/2018 10:28:57 Sinus tachycardia no longer present Electronically Signed On 04-24-2019 17:54:51 CDT by Luis Manuel Villagran [email or web address] <ELECTRONICALLY SIGNED> By: Dave Villagran MD, [facility] 04/24/19 1754 4 4 Dave Villagran MD, [facility] /EPI
[2019-04-25] VITALS: BP 112/68
[2019-04-25 04:00] VITALS: BP 100/64
[2019-04-25 04:37] LABS: ABSOLUTE EOSINOPHILS 0.1 thou/uL (0.0-0.7); ABSOLUTE LYMPHOCYTES 1.2 thou/uL (0.8-5.3); ABSOLUTE MONOCYTES 0.8 thou/uL (0.0-1.2); ABSOLUTE NEUTROPHILS 6.7 thou/uL (1.6-8.1); BASOPHILS 0.4 %; HEMATOCRIT 38.1 % (37.0-47.0); HEMOGLOBIN 12.9 gm/dL (12.0-15.0); LYMPHOCYTES 13.4 %; MCH 30.9 pg (26.0-34.0); MCV 90.8 fL (80.0-100.0); MONOCYTES 9.2 %; NUCLEATED RBCS 0 /100WBC; PLATELET COUNT* 204 thou/uL (150-400); RDW-CV 13.6 % (10.5-14.5); WBC 8.9 thou/uL (4.0-11.0)
[2019-04-25 04:46] LABS: CREATININE 0.8 mg/dL (0.6-1.3); MAGNESIUM 1.7 mg/dL (1.8-2.4); PHOSPHORUS* 3.5 mg/dL (2.5-4.9); POTASSIUM 4.1 mmol/L (3.5-5.1)
[2019-04-25 08:00] VITALS: BP 110/72; BP 112/64
[2019-04-25 12:02] VITALS: BP 112/74
[2019-04-25 15:58] VITALS: BP 110/72
--- NOTE | 2019-04-25 17:06 | PATH ---
[address] [address] PATHOLOGY RPT PROCEDURE Name: EMILY ESCUDERO Room: [address] ADM IN M.R.#: [id number] Admission: 04/23/19 Date of : 53 Discharge: Report #: [id number] Path Case #: [id number] [facility] Accession Number: [id number] . 01 Material submitted: . gastrointestinal site - ILEOSTOMY STUMP . 01 Clinical history: . Colon adenocarcinoma . 02 Diagnosis: Ileostomy stump: - Benign ileostomy including skin and small intestinal tissue with evidence of prior surgery including fibrosis, foreign body type granulomatous response, and submucosal black pigment tattooing. (VAL:edgar; 04/25/2019) MBR 04/25/2019 1456 Local . 02 Electronically signed: . Marlon Lanza MD, Pathologist NPI- [id number] . 01 Gross description: . The specimen is received in formalin, labeled "Emily Escudero, ileostomy stump". Received is a segment of small bowel measuring 3.5 cm in length by 2.2 cm in diameter. One margin is stapled closed. The opposite margin displays an ellipse of cai-pearson skin measuring 4.1 x 2.4 cm with a centrally located stoma with exposed light brown mucosa, which extends out from the skin, measuring 2.6 x 2.3 cm. Opening the specimen reveals pink-pearson mucosa with normal architectural folds. A artist's representative full-thickness cross-section is bisected and entirely submitted in cassette A1. (CAA; 04/24/2019) QAC/QAC 04/24/2019 1406 Local . 02 Pathologist provided ICD-10: L90.5, C18.9 . 02 CPT . 431250 Specimen Comment: A courtesy copy of this report has been sent to Specimen Comment: [phone]. Specimen Comment: Report sent to Performed at: [address] [id number] MD Wyatt Villafana MD Phone: [phone] Performed at: [address] [place] [address] PATHOLOGY RPT PROCEDURE Name: EMILY ESCUDERO Room: [address] ADM IN M.R.#: [id number] Admission: 04/23/19 Date of : 53 Discharge: Report #: [id number] Path Case #: [id number] [facility] James Ramirez [address], BISI [place] [id number] MD Marlon Lanza MD Phone: [phone]
[2019-04-25 20:00] VITALS: BP 114/80
[2019-04-26] VITALS: BP 108/78
[2019-04-26 04:00] VITALS: BP 127/89
[2019-04-26 05:39] LABS: HEMATOCRIT 42.1 % (37.0-47.0); HEMOGLOBIN 14.4 gm/dL (12.0-15.0); MCH 30.9 pg (26.0-34.0); MCHC 34.2 g/dL (28.0-37.0); MCV 90.4 fL (80.0-100.0); MPV 8.6 fl. (7.2-11.1); RBC 4.66 mil/uL (4.20-5.00); RDW-CV 13.7 % (10.5-14.5); WBC 7.5 thou/uL (4.0-11.0)
[2019-04-26 05:46] LABS: CALCIUM 9.2 mg/dL (8.5-10.1); POTASSIUM 4.3 mmol/L (3.5-5.1)
[2019-04-26 08:00] VITALS: BP 109/78
[2019-04-26 11:30] VITALS: BP 123/75
--- NOTE | 2019-04-26 14:54 | OP ---
[address] [address] OPERATIVE REPORT Name: EMILY DAVENPORT Room: [address] IN M.R.#: [id number] Admission: 04/23/19 Attend Phys: Justine Canada DO Discharge: Date of : 53 Report #: [id number] THIS REPORT FOR: //name// CC: Justine Canada [facility] physician/PCP DICTATED BY: Ileana Villanueva DO DATE OF SERVICE: 04/23/2019 PREOPERATIVE DIAGNOSIS: Colon cancer, status ileostomy. POSTOPERATIVE DIAGNOSIS: Colon cancer, status ileostomy. PRIMARY SURGEON: Justine Canada DO ASSEMBLER AND TESTER ELECTRONICS: Ileana Villanueva DO, PGY-2 SECOND BANJO REPAIR PERSON: Minor, medical student. ANESTHESIA: General and local. PROCEDURE PERFORMED: Exploratory laparotomy with lysis of adhesions greater than 1 hour, ileostomy takedown and reanastomosis, primary repair of incisional hernia. ESTIMATED BLOOD LOSS: 20 mL. FINDINGS: Multiple dense adhesions in the right lateral abdomen area where she previously had radiation treatment for cancer. A large 4 cm x 4 cm incisional hernia just inferior to the umbilicus. INDICATIONS: The patient is a pleasant 63-year-old female who was previously diagnosed with colon cancer and she underwent exploratory laparotomy, colon resection and formation of an ileostomy. She then underwent treatment for her cancer and now wishes to have her ileostomy reversed. Procedure, risks, benefits, possible complications were all discussed with the patient in detail including bleeding, infection, risks of anesthesia, injury to bowel or other surrounding structures, DVT, PE, stroke and . She voiced complete understanding and wished to proceed with surgery. DESCRIPTION OF PROCEDURE: Informed consent was obtained. The patient was taken to the operating room and placed supine on the operating room table. Preoperative antibiotics were given. SCDs were placed on bilateral lower extremities. Breaux catheter was placed. General endotracheal anesthesia was induced without difficulty. The patient was prepped and draped [place] [address] OPERATIVE REPORT Name: EMILY DAVENPORT Room: [address] IN ..#: [id number] Admission: 04/23/19 Attend Phys: Justine Canada DO Discharge: Date of : 53 Report #: [id number] sterile fashion. Timeout was performed to ensure correct patient and procedure. We began by injecting approximately 10 mL of 0.5% Marcaine along the previous incision from her previous exploratory laparotomy. A #10 blade scalpel was used to make an incision along the previous incision. Incision was carried down through subcutaneous tissue using electrocautery until we reached the level of fascia. The fascia was grasped between 2 Kochers and incised using electrocautery. Finger was inserted. Finger sweep was then performed to ensure there were no shabana-incisional adhesions. Remainder of the fascia was then incised. At this point, we took a moment to just explore the abdominal cavity. She was noted to have multiple dense adhesions in her right lateral abdomen with approximately 4 x 4 cm incisional hernia just below the umbilicus. At this point, we took the time to take down many of the adhesions in the right lateral abdomen. Metzenbaum scissors were used to take down these adhesions and lysis of adhesions took a little more than an hour. It was clearly in the area where she had previously received radiation treatment. Once the small bowel was completely free of adhesions, we took a moment to run the small bowel from the site of our ileostomy all the way back to the ligament of Treitz. No abnormalities were seen at this time. We then continued to explore the abdomen, palpated the remainder of the colon to ensure we did not feel any masses or other abnormalities. Located our stump and the transverse colon from her previous surgery. This was easily identified. Omental adhesions were taken down using Metzenbaum scissors and electrocautery. A 60 mm blue load on the KATHLEEN stapler was used to come across the ileum on the inside of the abdominal cavity, leaving just a small stump at the ileostomy site. Ileum was then brought over to our transverse colon stump, to prepare to make our anastomosis. Two approximating Lambert stitches were placed to attach our distal ileum to her transverse colon to prepare for our anastomosis. Both the ileal stump and transverse colon stump were grasped with an Allis and heavy curved scissors were used to cut a corner from both the transverse colon in the ileum. Again, a 60 mm staple load on the KATHLEEN stapler was used to attach to bring together the ileum and transverse colon, ensuring that our staple line fired along our tenia on the colon. Once the stapler was inserted into both the ileum and transverse colon, we ensured there were no surrounding adhesions. Nothing had come between our staple line. Stapler was fired without difficulty and staple line was inspected to ensure that it was widely patent. The open end of our anastomosis was then grasped with Allis clamps and came across this with a TA stapler. We then palpated our anastomosis to ensure that it remained widely patent and it was. We then placed another Lembert stitch to approximate our ileum to our transverse colon. We then placed an omental patch over the anastomosis and secured in place with 3-0 silk suture. At this point, we then turned our attention to the incisional hernia just below the umbilicus. The fascia was grasped with Erum at the infraumbilical portion of our incision. Electrocautery was used to make a plane for our stitches. Once this was done on both sides of our incision, we were then prepared to close our fascia. Prior to closing the fascia, we did irrigate the abdomen with approximately 1 liter of sterile saline. Fascia was closed using 2-0 PDS suture in a running fashion. [place] [address] OPERATIVE REPORT Name: EMILY DAVENPORT Room: [address] IN M.R.#: [id number] Admission: 04/23/19 Attend Phys: Justine Canada DO Discharge: Date of : 53 Report #: [id number] then closed using 3-0 Vicryl suture in a simple interrupted and inverted fashion. The skin incision was closed using 4-0 Monocryl suture in a running subcuticular fashion. An additional 10 mL of 0.5% Marcaine was injected. We turned our attention to the ileostomy site. An elliptical incision was made around the ileostomy site. Incision was carried down through the subcutaneous tissue using electrocautery until we reached the level of fascia. Blunt dissection with hemostat was used to dissect around the fascial edges to free up what was left of our ileostomy. Once it was completely freed, the specimen was passed off for permanent pathology and labeled as ileostomy. The fascial opening was then closed using 0 Vicryl suture in a [id number] fashion. We then irrigated the wound with sterile saline. Subcutaneous tissue was brought together using 3-0 Vicryl suture in a simple interrupted and inverted fashion. The skin was loosely approximated using 4-0 Monocryl suture in a simple interrupted and inverted fashion. The abdomen is cleansed and dried. A 13 cm Prevena wound VAC was placed over midline abdominal incision, noted to have good suction. The ileostomy site incision was covered with a sterile dressing using 4 x 4's and a Tegaderm. The patient tolerated the procedure very well. She was allowed to awaken in the operating room and was transferred to the PACU in stable condition with plans for admission to the floor. <ELECTRONICALLY SIGNED> By: Justine Canada DO 04/26/19 1454 1042 1135Ctara Canada DO /nt
[2019-04-26 15:54] VITALS: BP 136/75
[2019-04-26 20:00] VITALS: BP 127/80
[2019-04-27] VITALS: BP 116/76
[2019-04-27 04:00] VITALS: BP 118/74
[2019-04-27 07:56] LABS: HEMATOCRIT 37.7 % (37.0-47.0); HEMOGLOBIN 12.8 gm/dL (12.0-15.0); MCH 30.9 pg (26.0-34.0); MCHC 34.1 g/dL (28.0-37.0); MCV 90.8 fL (80.0-100.0); MPV 8.5 fl. (7.2-11.1); RBC 4.15 mil/uL (4.20-5.00); RDW-CV 12.9 % (10.5-14.5); WBC 7.9 thou/uL (4.0-11.0)
[2019-04-27 08:00] VITALS: BP 114/75
[2019-04-27 08:06] LABS: CALCIUM 8.7 mg/dL (8.5-10.1); CREATININE 0.8 mg/dL (0.6-1.3); MAGNESIUM 1.8 mg/dL (1.8-2.4); PHOSPHORUS* 2.8 mg/dL (2.5-4.9); POTASSIUM 3.9 mmol/L (3.5-5.1)
[2019-04-27 12:00] VITALS: BP 127/78
[2019-04-27 20:00] VITALS: BP 120/69
[2019-04-28] VITALS: BP 103/66
[2019-04-28 04:00] VITALS: BP 106/65
[2019-04-28 04:55] LABS: HEMATOCRIT 36.1 % (37.0-47.0); HEMOGLOBIN 12.2 gm/dL (12.0-15.0); MCH 30.7 pg (26.0-34.0); MCHC 33.7 g/dL (28.0-37.0); MCV 91.1 fL (80.0-100.0); MPV 8.6 fl. (7.2-11.1); RBC 3.96 mil/uL (4.20-5.00); WBC 8.9 thou/uL (4.0-11.0)
[2019-04-28 05:15] LABS: CALCIUM 8.3 mg/dL (8.5-10.1); CREATININE 0.8 mg/dL (0.6-1.3); MAGNESIUM 1.5 mg/dL (1.8-2.4); POTASSIUM 3.5 mmol/L (3.5-5.1)
[2019-04-28 07:30] VITALS: BP 109/57
[2019-04-28 08:00] VITALS: BP 109/57
[2019-04-28 16:00] VITALS: BP 105/66
[2019-04-28 20:00] VITALS: BP 110/64
[2019-04-29] VITALS: BP 104/63
[2019-04-29 04:00] VITALS: BP 90/60
[2019-04-29 05:41] LABS: HEMOGLOBIN 11.2 gm/dL (12.0-15.0); MCH 30.8 pg (26.0-34.0); MCHC 33.9 g/dL (28.0-37.0); MCV 90.8 fL (80.0-100.0); MPV 8.9 fl. (7.2-11.1); RBC 3.63 mil/uL (4.20-5.00); RDW-CV 12.9 % (10.5-14.5); WBC 8.7 thou/uL (4.0-11.0)
[2019-04-29 05:56] LABS: CALCIUM 8.6 mg/dL (8.5-10.1); CREATININE 0.7 mg/dL (0.6-1.3); MAGNESIUM 1.6 mg/dL (1.8-2.4); PHOSPHORUS* 3.7 mg/dL (2.5-4.9); POTASSIUM 3.8 mmol/L (3.5-5.1)
[2019-04-29 07:48] VITALS: BP 93/60
[2019-04-29 11:22] VITALS: BP 93/60
[2019-04-29 11:34] VITALS: BP 89/57
== END 2019-04-29 12:35 | disposition home or self-care (01) | DRG 331 ==
LOC: M.TBA 05:48 → M.PRE 06:23 → M.2W 14:26
PROVIDERS: Surgery; ADMIT Surgery
PROC: 0WQF0ZZ Repair Abdominal Wall, Open Approach (ICD-10-PCS; principal; 2019-04-23)
PROC: 0DN80ZZ Release Small Intestine, Open Approach (ICD-10-PCS; principal; 2019-04-23)
PROC: 0DBB0ZZ Excision of Ileum, Open Approach (ICD-10-PCS; principal; 2019-04-23)
DX: C18.9 Malignant neoplasm of colon, unspecified (principal); K43.2 Incisional hernia without obstruction or gangrene; K21.9 Gastro-esophageal reflux disease without esophagitis; Z93.2 Ileostomy status; Z86.718 Personal history of other venous thrombosis and embolism

== ENCOUNTER → 2019-09-24 | Outpatient (CLI) | payer MEDICARE ==
[2019-09-24 09:00] LABS: ABSOLUTE BASOPHILS 0.1 thou/uL (0.0-0.2); ABSOLUTE EOSINOPHILS 0.1 thou/uL (0.0-0.7); ABSOLUTE LYMPHOCYTES 1.5 thou/uL (0.8-5.3); ABSOLUTE MONOCYTES 0.4 thou/uL (0.0-1.2); ABSOLUTE NEUTROPHILS 5.9 thou/uL (1.6-8.1); EOSINOPHILS 1.6 %; HEMATOCRIT 41.1 % (37.0-47.0); HEMOGLOBIN 13.8 gm/dL (12.0-15.0); MCHC 33.7 g/dL (28.0-37.0); MCV 89.2 fL (80.0-100.0); MONOCYTES 5.5 %; MPV 8.1 fl. (7.2-11.1); NUCLEATED RBCS 0 /100WBC; PLATELET COUNT* 246 thou/uL (150-400); POLYS 72.9 %; RDW-CV 14.1 % (10.5-14.5)
[2019-09-24 09:07] LABS: CALCIUM 8.6 mg/dL (8.5-10.1); POTASSIUM 4.9 mmol/L (3.5-5.1)
[2019-09-24 09:11] LABS: ALBUMIN 3.7 g/dL (3.4-5.0); TOTAL BILIRUBIN 0.3 mg/dL (<0.1-1.0); TOTAL PROTEIN 6.8 g/dL (6.4-8.2)
== END ==
LOC: M.LAB 08:30 → M.CT 09:30
PROVIDERS: Nurse Practitioner Family
DX: C18.9 Malignant neoplasm of colon, unspecified (principal); K57.30 Diverticulosis of large intestine without perforation or abscess without bleeding; I70.0 Atherosclerosis of aorta; E04.2 Nontoxic multinodular goiter